=== PATIENT | male | born 1965 | race Caucasian/White ===

== ENCOUNTER → 2016-04-01 | Outpatient (CLI) | payer OTHER ==
--- NOTE | 2016-04-04 12:55 | SLEEP ---
DATE OF STUDY: 04/01/2016 ATTENDING PHYSICIAN: Krish Guillen MD This is a home sleep study. DATE OF STUDY: 04/01/2016 The patient is 50 years old who weighs 230 pounds and 72 inches tall with a BMI of 31. [place] score was 6. Home sleep study was performed at [facility]. The total recording time was 336 minutes. During this time, the patient had 3 central apneas, 352 obstructive apneas and no mixed apneas. There were 4 hypopneas. The patient's apnea-hypopnea index was 64 per hour. Supine index 65 per hour. Review of nocturnal oximetry study revealed an average oxygen saturation of 88% with a lowest of 64%. 177 minutes were spent in oxygen saturation of less than 90%. Mean heart rate was 89 beats per minute. IMPRESSION: 1. Severe sleep apnea-hypopnea syndrome with an AHI of 64 per hour. 2. Nocturnal hypoxia secondary to obstructive sleep apnea. RECOMMENDATIONS: 1. The patient should return for in-lab CPAP titration study. 2. Once optimal CPAP pressure is achieved, then follow up in 4-6 weeks to assess compliance with CPAP and to document clinical improvement. 3. Weight loss is strongly advised. 4. Avoid GANG MOWER OPERATOR depressants. 5. Caution regarding driving until symptoms of sleep apnea resolve with CPAP. PABLO MCCORD MD DR: AYDE/alex JOB#: [id number] / [id number] [facility] KRISH GUILLEN MD MTDD
== END | disposition home or self-care (01) ==
LOC: RT 06:10 → EDUNIT# 07:00
PROVIDERS: ATTEND Family Medicine
DX: Z00.00 Encounter for general adult medical examination without abnormal findings (principal); H91.93 Unspecified hearing loss, bilateral; R53.83 Other fatigue; N40.1 Benign prostatic hyperplasia with lower urinary tract symptoms; G47.33 Obstructive sleep apnea (adult) (pediatric)
CPT/HCPCS: G0399

== ENCOUNTER → 2016-05-22 | Outpatient (CLI) | payer OTHER ==
--- NOTE | 2016-05-23 16:32 | SLEEP ---
DATE OF STUDY: 05/22/2016 ATTENDING PHYSICIAN: Dr. Pietro Hays. The patient is 50 years old who weighs 230 pounds with a BMI of 31. The patient's [place] score was 5. The patient had a previous sleep study, which showed severe JOVANNY with an AHI of 64 per hour. The patient returned for CPAP titration. During the night study, the patient spent 406 minutes in bed and slept for 362 minutes with a sleep efficiency of 89%. Sleep latency was 19 minutes with a REM latency of 139 minutes. Overall, sleep architecture showed increased stage I and stage II sleep, normal slow wave and significantly reduced REM sleep. EKG monitoring revealed average heart rate of 87 beats per minute. No sustained arrhythmias were observed. PLMs were not seen. The patient was started on CPAP at a pressure of 7 cm of water as he was unable to tolerate lower pressure. At the final pressure of 15 cm of water, the patient had 109 minutes of sleep. The patient had supine sleep throughout. No REM sleep was observed. AHI was reduced to 1 per hour and oxygen saturation remained above 96%. The patient used a small sized nasal mask. IMPRESSION: 1. Severe sleep apnea diagnosed by previous sleep study. 2. No clinically significant PLMS. RECOMMENDATIONS: 1. CPAP at 15 cm water completely eliminated patient's sleep apnea and should be used on a nightly basis. 2. Follow up in 4-6 weeks to assess compliance with CPAP and to document clinical improvement. 3. Weight loss strongly advised. 4. Avoid YARN MERCERIZER OPERATOR depressants. 5. Caution regarding driving until symptoms of sleep apnea resolve with the use of CPAP. 6. The patient used small sized nasal mask. PABLO MCCORD MD DR: AYDE/alex JOB#: [id number] / [id number]
== END | disposition home or self-care (01) ==
LOC: RT 18:37
PROVIDERS: ATTEND Family Medicine
DX: G47.33 Obstructive sleep apnea (adult) (pediatric) (principal)
CPT/HCPCS: 94660

== ENCOUNTER 2020-11-15 13:40 | Inpatient (IN) | payer OTHER ==
[~2020-11-15] VITALS: Ht 180.3 cm; Wt 135.2 kg
[2020-11-15] MEDS ORDERED: DEXAMETHASONE SOD PHOS 20 MG/5 ML VIAL. IV ONE (14:30)
[2020-11-15] MEDS: IV NORMAL SALINE 1000ML BAG 1,000 ML IV SCH ×3 (14:30→15:24)
--- NOTE | 2020-11-15 14:52 | RAD ---
EXAM: Chest, single view. HISTORY: Shortness of air. Covid 19. COMPARISON: None. FINDINGS: A frontal view of the chest is obtained. There is multifocal interstitial and alveolar infi ltrate with partial right lower lobe consolidation. There is cardiomegaly. IMPRESSION: Multifocal infiltrate with suspected partial right lower lobe consolidation. Electronically signed by: Jennifer Acevedo MD (11/15/2020 2:50 PM) [id number]
--- NOTE | 2020-11-15 15:11 | PHYS DOC ---
Past Medical History Past Surgical History: No Surgical History Smoking Status: Never Smoker Alcohol Use: None General Adult EDM: Chief Complaint: SHORTNESS OF BREATH HPI: HPI: Patient is a 54 year old obese male who presents to the ED today complaining of shortness of breath worse at night, symptoms began 9 days ago after being diagnosed with COVID-19. Patient states symptoms got worse last night. Patient denies any fever. Reports coughing, denies any chest pain arrives in the ED with O2 sats at 85% on room air. Review of Systems: Review of Systems: Constitutional: Denies fever or chills. [] Eyes: Denies change in visual acuity. [] HENT: Denies nasal congestion or sore throat. [] Respiratory: Reports shortness of breath and coughing Cardiovascular: Denies chest pain or edema. [] GI: Denies abdominal pain, nausea, vomiting, bloody stools or diarrhea. [] : Denies dysuria. [] Musculoskeletal: Denies back pain or joint pain. [] Integument: Denies rash. [] Neurologic: Denies headache, focal weakness or sensory changes. [] Psychiatric: Denies depression or anxiety. [] Heart Score: C/O Chest Pain: N/A Risk Factors: Risk Factors: DM, Current or recent (<one month) smoker, HTN, HLP, family history of CAD, obesity. Risk Scores: Score 0 - 3: 2.5% MACE over next 6 weeks - Discharge Home Score 4 - 6: 20.3% MACE over next 6 weeks - Admit for Clinical Observation Score 7 - 10: 72.7% MACE over next 6 weeks - Early Invasive Strategies Current Medications: Current Medications Medications (Trade) Dose Ordered Sig/Lori Start Time Stop Time Status Last Admin Dose Admin Dexamethasone Sodium Phosphate (Decadron) 10 mg 1X ONCE 11/15/20 14:30 11/15/20 14:31 DC 11/15/20 14:30 10 MG Levofloxacin/ Dextrose 100 ml @ 100 mls/hr 1X ONCE 11/15/20 15:00 11/15/20 15:59 Sodium Chloride 1,000 ml @ 2,250 mls/hr Q27M 11/15/20 14:30 11/15/20 15:30 11/15/20 14:30 2,250 MLS/HR Allergies: Allergies: Allergies Coded Allergies Type Severity Reaction Last Updated Verified Penicillins Allergy Intermediate 11/15/20 Yes Sulfa (Sulfonamide Antibiotics) Allergy Intermediate 11/15/20 Yes Physical Exam: PE: Constitutional: Well developed, well nourished, no acute distress, non-toxic appearance. [] HENT: Normocephalic, atraumatic, bilateral external ears normal, oropharynx moist, no oral exudates, nose normal. [] Eyes: PERRLA, EOMI, conjunctiva normal, no discharge. [] Neck: Normal range of motion, no tenderness, supple, no stridor. [] Cardiovascular:Heart rate regular rhythm, no murmur [] Lungs & Thorax: Bilateral breath sounds clear to auscultation [] Abdomen: Bowel sounds normal, soft, no tenderness, no masses, no pulsatile masses. [] Skin: Warm, dry, no erythema, no rash. [] Back: No tenderness, no CVA tenderness. [] Extremities: No tenderness, no cyanosis, no clubbing, ROM intact, no edema. [] Neurologic: Alert and oriented X 3, normal motor function, normal sensory function, no focal deficits noted. [] Psychologic: Affect normal, judgement normal, mood normal. [] Current Patient Data: Vital Signs: Vital Signs Date Time Temp Pulse Resp B/P (MAP) Pulse Ox O2 Delivery O2 Flow Rate FiO2 11/15/20 14:15 95 Nasal Cannula 5.0 11/15/20 14:08 98.5 116 22 141/77 (98) 98.5 EKG: EKG: [] Radiology/Procedures: Radiology/Procedures: []PROCEDURE: PORTABLE CHEST 1V EXAM: Chest, single view. HISTORY: Shortness of air. Covid 19. COMPARISON: None. FINDINGS: A frontal view of the chest is obtained. There is multifocal interstitial and alveolar infiltrate with partial right lower lobe consolidation. There is cardiomegaly. IMPRESSION: Multifocal infiltrate with suspected partial right lower lobe consolidation. Electronically signed by: Jennifer Bey MD (11/15/2020 2:50 PM) [id number] DICTATED and SIGNED BY: JENNIFER BEY MD DATE: 11/15/20 [id number] Course & Med Decision Making: Course & Med Decision Making Pertinent Labs and Imaging studies reviewed. (See chart for details) This a 54-year-old male patient presenting to the ED today complaining of worsening cough and shortness of breath after being diagnosed with COVID-19 9 days ago. Patient arrived in the ED with O2 sats of 85% on room air. He was put on 5 L of oxygen satting 95% CBC with no acute findings, CMP with AST of 93, ALT 78, ALK 187. Chest x-ray noted for multifocal pneumonia. Started on Levaquin, and jose luis Spoke with Dr. Luis who accepted patient for admission Zuleima Disclaimer: Zuleima Disclaimer: This electronic medical record was generated, in whole or in part, using a voice recognition dictation system. Departure Departure Impression: Primary Impression: Acute respiratory failure with hypoxia Additional Impression: Pneumonia due to COVID-19 virus Disposition: ADMITTED INPATIENT Condition: STABLE Referrals: KRISH GUILLEN MD (PCP) CAIN MCLAIN APRN Nov 15, 2020 15:10
[2020-11-15 15:15] LABS: BASO % 0 % (0-3); EOS % 0 % (0-3); HEMATOCRIT 40.9 % (39.0-53.0); HEMOGLOBIN 14.2 g/dL (13.0-17.5); LYMPH # 0.6 x10^3/uL (1.0-4.8); LYMPH % 10 % (24-48); MEAN CORPUSCULAR HEMOGLOBIN 31 pg (25-35); MEAN CORPUSCULAR HGB CONC 35 g/dL (31-37); MEAN CORPUSCULAR VOLUME 88 fL (79-100); MONO # 0.3 x10^3/uL (0.0-1.1); MONO % 5 % (0-9); NEUT # 5.4 x10^3/uL (1.8-7.7); NEUT % 85 % (31-73); PLATELET COUNT 170 x10^3/uL (140-400); RED BLOOD COUNT 4.63 x10^6/uL (4.30-5.70); RED CELL DISTRIBUTION WIDTH 13.8 % (11.5-14.5); WHITE BLOOD COUNT 6.3 x10^3/uL (4.0-11.0)
[2020-11-15 15:36] LABS: CALCIUM 8.2 mg/dL (8.5-10.1); GFR 77.6; POTASSIUM 3.7 mmol/L (3.5-5.1)
[2020-11-15 15:49] LABS: ALBUMIN 2.4 g/dL (3.4-5.0); ALBUMIN/GLOBULIN RATIO 0.6 (1.0-1.7); TOTAL BILIRUBIN 0.4 mg/dL (0.2-1.0); TOTAL PROTEIN 6.6 g/dL (6.4-8.2)
--- NOTE | 2020-11-15 16:39 | PDOC1 ---
History and Physical Date of Admission Date of Admission DATE: 11/15/20 TIME: 16:31 Identification/Chief Complaint Chief Complaint Shortness of breath Source Source: Patient History of Present Illness History of Present Illness Patient is a 54-year-old male with past medical history morbid obesity, presents to the ED with complaints of shortness of breath. States he was diagnosed with COVID-19 9 days ago that he contracted from his at home. Initially symptoms began with cough, but since that time has been progressing to include shortness of breath, body aches, headaches. Upon arrival in the ED he was saturating 85% on room air. This improved with 5 L nasal cannula. Labs on admission showed AST 93, ALT 78, alk phos 187, albumin 2.4, sodium 132. Chest x-ray showed multifocal infiltrates with suspected partial right lower lobe consolidation. He has not been vaccinated against COVID-19 for "sabianism reasons". He received Levaquin and Decadron in the ED. Will admit patient for further medical management. Past Medical History Past Medical History Morbid obesity Past Surgical History Past Surgical History: No pertinent history Family History Family History Atrial fibrillation Family History: Coronary Artery Disease Social History Smoke: No ALCOHOL: occassional Drugs: None Current Medications Current Medications Current Medications Sodium Chloride 1,000 ml @ 2,250 mls/hr Q27M IV Last administered on 11/15/20at 14:30; Start 11/15/20 at 14:30; Stop 11/15/20 at 15:30; Status DC Dexamethasone Sodium Phosphate (Decadron) 10 mg 1X ONCE IV Last administered on 11/15/20at 14:30; Start 11/15/20 at 14:30; Stop 11/15/20 at 14:31; Status DC Levofloxacin/ Dextrose 100 ml @ 100 mls/hr 1X ONCE IV Last administered on 11/15/20at 15:29; Start 11/15/20 at 15:00; Stop 11/15/20 at 15:59; Status DC Remdesivir 200 mg/ Sodium Chloride 210 ml @ 210 mls/hr 1X ONCE IV ; Start 11/01 07/21 at 17:00; Stop 11/15/20 at 17:59 Remdesivir 100 mg/ Sodium Chloride 230 ml @ 460 mls/hr Q24H IV ; Start 11/16/20 at 17:00; Stop 11/19/20 at 17:29 Allergies Allergies: Coded Allergies: Penicillins (Verified Allergy, Intermediate, 11/15/20) Sulfa (Sulfonamide Antibiotics) (Verified Allergy, Intermediate, 11/15/20) ROS Review of System GENERAL: No history of weight change, weakness or fevers. SKIN: No bruising, hair changes or rashes. EYES: No blurred, double or loss of vision. NOSE AND THROAT: No history of nosebleeds, hoarseness or sore throat. HEART: Denies chest pain, denies palpitations. LUNGS: Cough, shortness of breath. Denies hemoptysis or wheezing. GASTROINTESTINAL: Denies nausea, vomiting, abdominal pain. GENITOURINARY: Denies dysuria, frequency, urgency, hematuria. NEUROLOGIC: Denies history of numbness, tingling, tremor or weakness. PSYCHIATRIC: Denies anxiety, denies depression. ENDOCRINE: No history of heat or cold intolerance, polyuria or polydipsia. EXTREMITIES: Denies muscle weakness, joint pain, pain on walking or stiffness. Physical Exam Physical Exam General: Alert, Oriented X3, Cooperative, mild distress. Morbidly obese. HEENT: PERRLA, EOMI Lungs: Decreased breath sounds bilaterally. Normal air movement Heart: RRR, no murmurs Cardiovascular: S1, S2 Abdomen: Obese abdomen. Normal bowel sounds, Soft, No tenderness Extremities: No clubbing, No cyanosis Skin: No rashes, No significant lesion Neuro: Normal speech, Normal tone, Sensation intact Psych/Mental Status: Mental status NL, Mood NL Vitals Vitals Vital Signs Date Time Temp Pulse Resp B/P (MAP) Pulse Ox O2 Delivery O2 Flow Rate FiO2 11/15/20 14:15 95 Nasal Cannula 5.0 11/15/20 14:08 98.5 116 22 141/77 (98) 98.5 Labs Labs Laboratory Tests Test 11/15/20 15:00 White Blood Count 6.3 x10^3/uL (4.0-11.0) Red Blood Count 4.63 x10^6/uL (4.30-5.70) Hemoglobin 14.2 g/dL (13.0-17.5) Hematocrit 40.9 % (39.0-53.0) Mean Corpuscular Volume 88 fL (79-100) Mean Corpuscular Hemoglobin 31 pg (25-35) Mean Corpuscular Hemoglobin Concent 35 g/dL (31-37) Red Cell Distribution Width 13.8 % (11.5-14.5) Platelet Count 170 x10^3/uL (140-400) Neutrophils (%) (Auto) 85 % (31-73) Lymphocytes (%) (Auto) 10 % (24-48) Monocytes (%) (Auto) 5 % (0-9) Eosinophils (%) (Auto) 0 % (0-3) Basophils (%) (Auto) 0 % (0-3) Neutrophils # (Auto) 5.4 x10^3/uL (1.8-7.7) Lymphocytes # (Auto) 0.6 x10^3/uL (1.0-4.8) Monocytes # (Auto) 0.3 x10^3/uL (0.0-1.1) Eosinophils # (Auto) 0.0 x10^3/uL (0.0-0.7) Basophils # (Auto) 0.0 x10^3/uL (0.0-0.2) Sodium Level 132 mmol/L (136-145) Potassium Level 3.7 mmol/L (3.5-5.1) Chloride Level 98 mmol/L (98-107) Carbon Dioxide Level 25 mmol/L (21-32) Anion Gap 9 (6-14) Blood Urea Nitrogen 10 mg/dL (8-26) Creatinine 1.0 mg/dL (0.7-1.3) Estimated GFR (Cockcroft-Gault) 77.6 BUN/Creatinine Ratio 10 (6-20) Glucose Level 114 mg/dL (70-99) Lactic Acid Level 1.2 mmol/L (0.4-2.0) Calcium Level 8.2 mg/dL (8.5-10.1) Magnesium Level 2.0 mg/dL (1.8-2.4) Total Bilirubin 0.4 mg/dL (0.2-1.0) Aspartate Amino Transf (AST/SGOT) 93 U/L (15-37) Alanine Aminotransferase (ALT/SGPT) 78 U/L (16-63) Alkaline Phosphatase 187 U/L (46-116) Troponin I Quantitative < 0.017 ng/mL (0.000-0.055) NF-Cgi-N-Type Natriuretic Peptide 56 pg/mL (0-124) Total Protein 6.6 g/dL (6.4-8.2) Albumin 2.4 g/dL (3.4-5.0) Albumin/Globulin Ratio 0.6 (1.0-1.7) Procalcitonin 0.17 ng/mL (0.00-0.10) Thyroid Stimulating Hormone (TSH) 0.925 uIU/mL (0.358-3.74) Laboratory Tests Test 11/15/20 15:00 White Blood Count 6.3 x10^3/uL (4.0-11.0) Red Blood Count 4.63 x10^6/uL (4.30-5.70) Hemoglobin 14.2 g/dL (13.0-17.5) Hematocrit 40.9 % (39.0-53.0) Mean Corpuscular Volume 88 fL (79-100) Mean Corpuscular Hemoglobin 31 pg (25-35) Mean Corpuscular Hemoglobin Concent 35 g/dL (31-37) Red Cell Distribution Width 13.8 % (11.5-14.5) Platelet Count 170 x10^3/uL (140-400) Neutrophils (%) (Auto) 85 % (31-73) Lymphocytes (%) (Auto) 10 % (24-48) Monocytes (%) (Auto) 5 % (0-9) Eosinophils (%) (Auto) 0 % (0-3) Basophils (%) (Auto) 0 % (0-3) Neutrophils # (Auto) 5.4 x10^3/uL (1.8-7.7) Lymphocytes # (Auto) 0.6 x10^3/uL (1.0-4.8) Monocytes # (Auto) 0.3 x10^3/uL (0.0-1.1) Eosinophils # (Auto) 0.0 x10^3/uL (0.0-0.7) Basophils # (Auto) 0.0 x10^3/uL (0.0-0.2) Sodium Level 132 mmol/L (136-145) Potassium Level 3.7 mmol/L (3.5-5.1) Chloride Level 98 mmol/L (98-107) Carbon Dioxide Level 25 mmol/L (21-32) Anion Gap 9 (6-14) Blood Urea Nitrogen 10 mg/dL (8-26) Creatinine 1.0 mg/dL (0.7-1.3) Estimated GFR (Cockcroft-Gault) 77.6 BUN/Creatinine Ratio 10 (6-20) Glucose Level 114 mg/dL (70-99) Lactic Acid Level 1.2 mmol/L (0.4-2.0) Calcium Level 8.2 mg/dL (8.5-10.1) Magnesium Level 2.0 mg/dL (1.8-2.4) Total Bilirubin 0.4 mg/dL (0.2-1.0) Aspartate Amino Transf (AST/SGOT) 93 U/L (15-37) Alanine Aminotransferase (ALT/SGPT) 78 U/L (16-63) Alkaline Phosphatase 187 U/L (46-116) Troponin I Quantitative < 0.017 ng/mL (0.000-0.055) CX-Avj-X-Type Natriuretic Peptide 56 pg/mL (0-124) Total Protein 6.6 g/dL (6.4-8.2) Albumin 2.4 g/dL (3.4-5.0) Albumin/Globulin Ratio 0.6 (1.0-1.7) Procalcitonin 0.17 ng/mL (0.00-0.10) Thyroid Stimulating Hormone (TSH) 0.925 uIU/mL (0.358-3.74) Images Images PATIENT: BENNIE ENGEL ACCOUNT: [id number] : 1965 LOCATION: ER AGE: 54 SEX: M EXAM STATUS: PRE ER ORD. PHYSICIAN: CAIN MCLAIN APRN REASON: SOA +covid PROCEDURE: PORTABLE CHEST 1V EXAM: Chest, single view. HISTORY: Shortness of air. Covid 19. COMPARISON: None. FINDINGS: A frontal view of the chest is obtained. There is multifocal interstitial and alveolar infiltrate with partial right lower lobe consolidation. There is cardiomegaly. IMPRESSION: Multifocal infiltrate with suspected partial right lower lobe consolidation. VTE Prophylaxis Ordered VTE Prophylaxis Devices: No VTE Pharmacological Prophylaxi: Yes Assessment/Plan Assessment/Plan Acute respiratory failure with hypoxia COVID-19 pneumonia Morbid obesity Severe malnutrition Plan: After discussion with patient, will initiate remdesivir for 5-day course Decadron 6 mg daily to complete 10-day treatment with slow taper Empiric antibiotics Monitor daily LFTs Obtain CRP; if greater than >75 will consult pharmacy for Actemra Currently breathing on 5 L nasal cannula; if he begins to require more oxygen will consult pulmonology for further recommendations Supportive care, vitamin C, zinc. FEN - Cardiac diet PPX - Lovenox FULL CODE Dispo - inpatient for above Patient names his as surrogate decision-maker Justifications for Admission Other Justification ASH WEST MD Nov 15, 2020 16:39
[2020-11-15] MEDS ORDERED: MAG HYDROX/ALUMINUM HYD/SIMETH 30 ML ORAL.SUSP PO PRN (17:00)
[2020-11-15] MEDS ORDERED: CALCIUM CARBONATE 500 MG TAB.CHEW PO PRN (17:00)
[2020-11-15] MEDS ORDERED: HYDROcodone/APAP 5/325MG 1 TAB TABLET PO PRN (17:00)
[2020-11-15] MEDS ORDERED: ACETAMINOPHEN 325 MG TABLET. PO PRN ×2 (17:00→21:30)
[2020-11-15] MEDS ORDERED: ZOLPIDEM 5 MG TABLET. PO PRN (17:00)
[2020-11-15] MEDS ORDERED: ONDANSETRON PF 4 MG/2 ML VIAL. IVP PRN ×2 (17:00→21:30)
[2020-11-15] MEDS ORDERED: tiZANidine 4 MG TABLET. PO PRN (17:00)
[2020-11-15] MEDS ORDERED: MAGNESIUM HYDROXIDE 2,400 MG/30 ML ORAL.SUSP. PO PRN (17:00)
[2020-11-15] MEDS ORDERED: REMDESIVIR LOAD in IV NORMAL SALINE 250ML TV IV ONE (17:00)
--- NOTE | 2020-11-15 17:21 | EKG ---
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
[2020-11-15] MEDS: cefTRIAXone IV Push 1 GM VIAL. IVP SCH (17:40)
[2020-11-15 19:00] VITALS: BP 147/85
[2020-11-15] MEDS ORDERED: VENTOLIN HFA18 GM INH (19:49)
[2020-11-15] MEDS ORDERED: BENZ200C47 PO (19:49)
[2020-11-15] MEDS: guaiFENesin DM 200MG/20MG 10 ML SYRUP PO PRN (21:06)
[2020-11-15] MEDS: ENOXAPARIN 40 MG/0.4 ML SYRINGE. SQ SCH (21:06)
[2020-11-15] MEDS: DOXYCYCLINE HYCLATE 100 MG TABLET PO SCH (21:06)
[2020-11-15] MEDS: ASCORBIC ACID 500 MG TABLET PO SCH (21:06)
[2020-11-15] MEDS ORDERED: MORPHINE SULFATE 2 MG/ML INJ. IVP PRN (21:30)
[2020-11-15 22:49] VITALS: BP 133/71
[2020-11-16 06:54] LABS: ALBUMIN 2.4 g/dL (3.4-5.0); DIRECT BILIRUBIN 0.1 mg/dL (0.0-0.2); TOTAL BILIRUBIN 0.3 mg/dL (0.2-1.0); TOTAL PROTEIN 5.8 g/dL (6.4-8.2)
[2020-11-16 07:00] VITALS: BP 144/78
[2020-11-16 07:04] LABS: CALCIUM 8.3 mg/dL (8.5-10.1); CREATININE 0.9 mg/dL (0.7-1.3); GFR 87.6; POTASSIUM 3.8 mmol/L (3.5-5.1)
--- NOTE | 2020-11-16 08:26 | PDOC ---
[employer] PROGRESS NOTE Date of Service DOS: DATE: 11/16/20 TIME: 08:24 Chief Complaint Chief Complaint Acute respiratory failure with hypoxia COVID-19 pneumonia Morbid obesity Severe malnutrition Plan: After discussion with patient, will initiate remdesivir for 5-day course Decadron 6 mg daily to complete 10-day treatment with slow taper Empiric antibiotics Monitor daily LFTs Requires more oxygen will consult pulmonology for further recommendations regarding baricitinib Supportive care, vitamin C, zinc. FEN - Cardiac diet PPX - Lovenox FULL CODE Dispo - inpatient for above Patient names his as surrogate decision-maker History of Present Illness History of Present Illness Mr Holt is a 54-year-old male with past medical history morbid obesity, presents to the ED with complaints of shortness of breath. States he was diagnosed with COVID-19 9 days ago that he contracted from his at home. Initially symptoms began with cough, but since that time has been progressing to include shortness of breath, body aches, headaches. Upon arrival in the ED he was saturating 85% on room air. This improved with 5 L nasal cannula. Labs on admission showed AST 93, ALT 78, alk phos 187, albumin 2.4, sodium 132. Chest x-ray showed multifocal infiltrates with suspected partial right lower lobe consolidation. He has not been vaccinated against COVID-19 for "holiness reasons". He received Levaquin and Decadron in the ED. Will admit patient for further medical management. Afebrile overnight. O2 saturations 92% now on 8 L nasal cannula. LFTs increased CRP 159. Notes he thinks he could taste the jelly on his toast today and his appetite is improved. Still complaining of diarrhea and abdominal pain thinks his cough is stable. Vitals/I&O Vitals/I&O: Vital Signs Date Time Temp Pulse Resp B/P (MAP) Pulse Ox O2 Delivery O2 Flow Rate FiO2 11/16/20 07:00 97.0 95 18 144/78 (100) 90 Nasal Cannula 6.0 97.0 I & O 11/15/20 11/15/20 11/16/20 15:00 23:00 07:00 Intake Total 400 ml Balance 400 ml Physical Exam General: Alert, Oriented X3, Cooperative, moderate distress Heart: Regular rate, Normal S1, Normal S2 Lungs: Clear Abdomen: Normal bowel sounds, Soft Extremities: No clubbing, No cyanosis Skin: No rashes, No breakdown Labs Labs: Laboratory Tests Test 11/15/20 15:00 11/15/20 18:10 11/15/20 21:25 11/16/20 02:45 White Blood Count 6.3 x10^3/uL (4.0-11.0) Red Blood Count 4.63 x10^6/uL (4.30-5.70) Hemoglobin 14.2 g/dL (13.0-17.5) Hematocrit 40.9 % (39.0-53.0) Mean Corpuscular Volume 88 fL (79-100) Mean Corpuscular Hemoglobin 31 pg (25-35) Mean Corpuscular Hemoglobin Concent 35 g/dL (31-37) Red Cell Distribution Width 13.8 % (11.5-14.5) Platelet Count 170 x10^3/uL (140-400) Neutrophils (%) (Auto) 85 % (31-73) Lymphocytes (%) (Auto) 10 % (24-48) Monocytes (%) (Auto) 5 % (0-9) Eosinophils (%) (Auto) 0 % (0-3) Basophils (%) (Auto) 0 % (0-3) Neutrophils # (Auto) 5.4 x10^3/uL (1.8-7.7) Lymphocytes # (Auto) 0.6 x10^3/uL (1.0-4.8) Monocytes # (Auto) 0.3 x10^3/uL (0.0-1.1) Eosinophils # (Auto) 0.0 x10^3/uL (0.0-0.7) Basophils # (Auto) 0.0 x10^3/uL (0.0-0.2) Sodium Level 132 mmol/L (136-145) 136 mmol/L (136-145) Potassium Level 3.7 mmol/L (3.5-5.1) 3.8 mmol/L (3.5-5.1) Chloride Level 98 mmol/L (98-107) 99 mmol/L (98-107) Carbon Dioxide Level 25 mmol/L (21-32) 24 mmol/L (21-32) Anion Gap 9 (6-14) 13 (6-14) Blood Urea Nitrogen 10 mg/dL (8-26) 13 mg/dL (8-26) Creatinine 1.0 mg/dL (0.7-1.3) 0.9 mg/dL (0.7-1.3) Estimated GFR (Cockcroft-Gault) 77.6 87.6 BUN/Creatinine Ratio 10 (6-20) Glucose Level 114 mg/dL (70-99) 136 mg/dL (70-99) Lactic Acid Level 1.2 mmol/L (0.4-2.0) Calcium Level 8.2 mg/dL (8.5-10.1) 8.3 mg/dL (8.5-10.1) Magnesium Level 2.0 mg/dL (1.8-2.4) Total Bilirubin 0.4 mg/dL (0.2-1.0) 0.3 mg/dL (0.2-1.0) Aspartate Amino Transf (AST/SGOT) 93 U/L (15-37) 96 U/L (15-37) Alanine Aminotransferase (ALT/SGPT) 78 U/L (16-63) 86 U/L (16-63) Alkaline Phosphatase 187 U/L (46-116) 187 U/L (46-116) Troponin I Quantitative < 0.017 ng/mL (0.000-0.055) < 0.017 ng/mL (0.000-0.055) < 0.017 ng/mL (0.000-0.055) C-Reactive Protein, Quantitative 194.2 mg/L (0-3.3) 193.9 mg/L (0-3.3) NM-Xpc-U-Type Natriuretic Peptide 56 pg/mL (0-124) Total Protein 6.6 g/dL (6.4-8.2) 5.8 g/dL (6.4-8.2) Albumin 2.4 g/dL (3.4-5.0) 2.4 g/dL (3.4-5.0) Albumin/Globulin Ratio 0.6 (1.0-1.7) Procalcitonin 0.17 ng/mL (0.00-0.10) Thyroid Stimulating Hormone (TSH) 0.925 uIU/mL (0.358-3.74) Direct Bilirubin 0.1 mg/dL (0.0-0.2) Test 11/16/20 07:53 Glucose (Fingerstick) 147 mg/dL (70-99) Comment Review of Relevant I have reviewed the following items [place] (where applicable) has been applied. Medications: Current Medications Medications (Trade) Dose Ordered Sig/Lori Route PRN Reason Start Time Stop Time Status Last Admin Dose Admin Sodium Chloride 1,000 ml @ 2,250 mls/hr Q27M IV 11/15/20 14:30 11/15/20 15:30 DC 11/15/20 15:24 Dexamethasone Sodium Phosphate (Decadron) 10 mg 1X ONCE IV 11/15/20 14:30 11/15/20 14:31 DC 11/15/20 14:30 Levofloxacin/ Dextrose 100 ml @ 100 mls/hr 1X ONCE IV 11/15/20 15:00 11/15/20 15:59 DC 11/15/20 15:29 Remdesivir 200 mg/ Sodium Chloride 210 ml @ 210 mls/hr 1X ONCE IV 11/15/20 17:00 11/15/20 17:59 DC 11/15/20 17:40 Ceftriaxone Sodium (Rocephin) 1 gm DAILY IVP 11/15/20 17:00 11/21/20 16:59 11/15/20 17:40 Doxycycline Hyclate (Vibra-Tab) 100 mg BID PO 11/15/20 21:00 11/20/20 20:59 11/15/20 21:06 Ascorbic Acid (Vitamin C) 500 mg BID PO 11/15/20 21:00 11/29/20 20:59 11/15/20 21:06 Guaifenesin (Robitussin Dm) 10 ml PRN Q6HRS PRN PO COUGH 11/15/20 16:45 11/15/20 21:06 Enoxaparin Sodium (Lovenox 40mg Syringe) 40 mg Q12HR SQ 11/15/20 21:00 11/15/20 21:06 Justifications for Admission Other Justification CANDE LONDON MD Nov 16, 2020 08:26
[2020-11-16] MEDS: ENOXAPARIN 40 MG/0.4 ML SYRINGE. SQ SCH ×2 (08:57→22:07)
[2020-11-16] MEDS: ZINC SULFATE 220 MG CAPSULE. PO SCH (08:57)
[2020-11-16] MEDS: ASCORBIC ACID 500 MG TABLET PO SCH ×2 (08:57→22:08)
[2020-11-16] MEDS: DOXYCYCLINE HYCLATE 100 MG TABLET PO SCH ×2 (08:57→22:08)
[2020-11-16] MEDS: DEXAMETHASONE SOD PHOS 4 MG/ML VIAL IVP SCH (08:58)
--- NOTE | 2020-11-16 10:21 | NUR ---
SW following. Discussed with RN, pt from home with , 6-8L, cardiac diet. COVID-19 positive. RN advised no SW needs at this time. SW will continue to follow.
[2020-11-16 11:00] VITALS: BP 158/77
[2020-11-16] MEDS ORDERED: LOPERAMIDE 2 MG CAPSULE PO PRN (11:45)
--- NOTE | 2020-11-16 12:46 | CONS ---
DATE OF CONSULTATION: 11/16/2020 PULMONARY CONSULTATION ATTENDING PHYSICIAN: Dr. Luis. REASON FOR CONSULTATION: Hypoxic respiratory failure, COVID-19 pneumonia. HISTORY OF PRESENT ILLNESS: The patient is a 54-year-old male with a BMI of 41.6. He is a nonsmoker. He was tested positive for COVID on the 6th. He initially did not have any shortness of breath. The initial symptoms were cough, some body aches, headaches. Then, he started to have some shortness of breath. His pulse ox was 85% on room air. He is now up to 6 liters of oxygen. His chest x-ray shows bilateral interstitial infiltrates. This is consistent with COVID-19. No headaches, no nausea, vomiting, no diarrhea, no dysuria. He is unvaccinated. The patient was initiated on remdesivir and steroids. I have been asked to see him for further evaluation. PAST MEDICAL HISTORY: Morbid obesity. PAST SURGICAL HISTORY: None. FAMILY HISTORY: Atrial fibrillation and coronary artery disease. ALLERGIES: PENICILLIN, SULFA. MEDICATIONS: Reviewed as listed in the [facility] including remdesivir and dexamethasone and antibiotic Rocephin. He is also on Lovenox for DVT prophylaxis. REVIEW OF SYSTEMS: A 12-point system obtained. Pertinent positives discussed in my present illness, otherwise noncontributory. All systems that were negative were reviewed as well. PHYSICAL EXAMINATION: He is comfortable. Pulse ox 90% on 6 liters, afebrile. Visual exam done due to COVID-19. No obvious respiratory distress. No paradoxical breathing. No skin rash. LABORATORY DATA: Reviewed. White cell count 6.3, hemoglobin 14.2. BUN and creatinine 13 and 0.9. LFTs are abnormal. IMPRESSION: 1. Acute hypoxic respiratory failure secondary to COVID-19 pneumonia and acute lung injury. 2. Abnormal chest x-ray related to COVID-19 pneumonia. 3. The patient is unvaccinated for COVID-19. 4. Abnormal liver function test. Would not be a candidate for baricitinib. 5. Moderate protein calorie malnutrition. RECOMMENDATIONS: 1. Continue present oxygen. Keep saturation 92 and above. 2. We will closely watch for need for increased oxygen requirements. 3. Continue dexamethasone. 4. Remdesivir for 5-day protocol. 5. IV antibiotics, doxycycline and Rocephin. 6. Lovenox for DVT prophylaxis. 7. As discussed above, the patient is not a candidate for baricitinib. 8. Discussed with PAOLA. AYDE/ABRAN DR: Kartik TID: [id number]
[2020-11-16] MEDS: cefTRIAXone IV Push 1 GM VIAL. IVP SCH (14:20)
[2020-11-16 15:00] VITALS: BP 160/74
[2020-11-16] MEDS: guaiFENesin DM 200MG/20MG 10 ML SYRUP PO PRN (17:58)
[2020-11-16] MEDS: REMDESIVIR 100mg in NORMAL SALINE 250ML X 4 DAYS IV SCH (17:58)
[2020-11-16 19:00] VITALS: BP 144/72
[2020-11-16 23:00] VITALS: BP 132/77
[2020-11-16 23:24] LABS: HEMOGLOBIN A1C 5.9 % (4.8-5.6)
[2020-11-17 03:00] VITALS: BP 130/75
[2020-11-17 07:00] VITALS: BP 140/75
--- NOTE | 2020-11-17 07:47 | PDOC ---
[employer] PROGRESS NOTE Date of Service DOS: DATE: 11/17/20 TIME: 07:47 Chief Complaint Chief Complaint Acute respiratory failure with hypoxia COVID-19 pneumonia Morbid obesity Severe malnutrition Plan: After discussion with patient, will initiate remdesivir for 5-day course Decadron 6 mg daily to complete 10-day treatment with slow taper Empiric antibiotics Monitor daily LFTs Requires more oxygen will consult pulmonology for further recommendations regarding baricitinib Supportive care, vitamin C, zinc. FEN - Cardiac diet PPX - Lovenox FULL CODE Dispo - inpatient for above Patient names his as surrogate decision-maker History of Present Illness History of Present Illness Mr Holt is a 54-year-old male with past medical history morbid obesity, presents to the ED with complaints of shortness of breath. States he was diagnosed with COVID-19. 9 days ago that he contracted from his at home. Initially symptoms began with cough, but since that time has been progressing to include shortness of breath, body aches, headaches. Upon arrival in the ED he was saturating 85% on room air. This improved with 5 L nasal cannula. Labs on admission showed AST 93, ALT 78, alk phos 187, albumin 2.4, sodium 132. Chest x- ray showed multifocal infiltrates with suspected partial right lower lobe consolidation. He has not been vaccinated against COVID-19 for "tenriism reasons". He received Levaquin and Decadron in the ED. Will admit patient for further medical management. 11/16: Afebrile overnight. O2 saturations 92% now on 8 L nasal cannula. LFTs increased CRP 159. Notes he thinks he could taste the jelly on his toast today and his appetite is improved. Still complaining of diarrhea and abdominal pain thinks his cough is stable. Afebrile overnight. LFTs not the same CRP still elevated. O2 saturations 93% now on 15 L facemask O2. Still has an appetite is able to move around. Has significant O2 desaturations when he tried to get up to urinate today. Still has little bit of diarrhea abdominal pain is a little better. Discussed with his over the phone. Given his LFTs not a candidate for baricitinib Vitals/I&O Vitals/I&O: Vital Signs Date Time Temp Pulse Resp B/P (MAP) Pulse Ox O2 Delivery O2 Flow Rate FiO2 11/17/20 03:00 97.5 92 16 130/75 (93) 90 97.5 11/16/20 20:15 Nasal Cannula 10.0 I & O 11/16/20 11/16/20 11/17/20 15:00 23:00 07:00 Intake Total 500 ml 640 ml Balance 500 ml 640 ml Physical Exam General: Alert, Oriented X3, Cooperative, moderate distress Heart: Regular rate, Normal S1, Normal S2 Lungs: Clear Abdomen: Normal bowel sounds, Soft Extremities: No clubbing, No cyanosis Skin: No rashes, No breakdown Labs Labs: Laboratory Tests Test 11/16/20 07:53 11/16/20 12:09 11/16/20 16:47 11/16/20 21:35 Glucose (Fingerstick) 147 mg/dL (70-99) 150 mg/dL (70-99) 141 mg/dL (70-99) 136 mg/dL (70-99) Comment Review of Relevant I have reviewed the following items [place] (where applicable) has been applied. Medications: Current Medications Medications (Trade) Dose Ordered Sig/Lori Route PRN Reason Start Time Stop Time Status Last Admin Dose Admin Remdesivir 100 mg/ Sodium Chloride 230 ml @ 460 mls/hr Q24H IV 11/16/20 17:00 11/19/20 17:29 11/16/20 17:58 Dexamethasone Sodium Phosphate (Decadron) 6 mg DAILY IVP 11/16/20 09:00 11/26/20 08:59 11/16/20 08:58 Zinc Sulfate (Orazinc) 440 mg DAILY PO 11/16/20 09:00 11/30/20 08:59 11/16/20 08:57 Justifications for Admission Other Justification CANDE LONDON MD Nov 17, 2020 07:47
[2020-11-17 08:16] LABS: ALBUMIN 2.3 g/dL (3.4-5.0); DIRECT BILIRUBIN 0.2 mg/dL (0.0-0.2); TOTAL BILIRUBIN 0.4 mg/dL (0.2-1.0); TOTAL PROTEIN 5.7 g/dL (6.4-8.2)
[2020-11-17 08:21] LABS: CALCIUM 8.3 mg/dL (8.5-10.1); GFR 77.6; POTASSIUM 3.4 mmol/L (3.5-5.1)
[2020-11-17] MEDS: DEXAMETHASONE SOD PHOS 4 MG/ML VIAL IVP SCH (09:20)
[2020-11-17] MEDS: DOXYCYCLINE HYCLATE 100 MG TABLET PO SCH ×2 (09:21→21:17)
[2020-11-17] MEDS: ZINC SULFATE 220 MG CAPSULE. PO SCH (09:21)
[2020-11-17] MEDS: cefTRIAXone IV Push 1 GM VIAL. IVP SCH (09:21)
[2020-11-17] MEDS: ASCORBIC ACID 500 MG TABLET PO SCH ×2 (09:21→21:17)
[2020-11-17] MEDS: ENOXAPARIN 40 MG/0.4 ML SYRINGE. SQ SCH ×2 (09:21→21:17)
--- NOTE | 2020-11-17 10:26 | NUR ---
SW following. Discussed with RN, pt from home with . COVID-19 positive. No on 12L oxygen and likely needing to bump up. RN advised no SW needs at this time. SW will continue to follow.
[2020-11-17 11:00] VITALS: BP 142/65
--- NOTE | 2020-11-17 11:10 | PDOC ---
PULMONARY PROGRESS NOTES DATE: 11/17/20 TIME: 11:08 Subjective Denies any shortness of breath Remains on 10 L oxygen Vitals Vital Signs Date Time Temp Pulse Resp B/P (MAP) Pulse Ox O2 Delivery O2 Flow Rate FiO2 11/17/20 07:00 96.9 88 26 140/75 (96) 91 96.9 11/16/20 20:15 Nasal Cannula 10.0 Comments Visual exam done due to COVID-19. No paradoxical breathing no skin rash no leg edema General: Alert Labs Laboratory Tests Test 11/15/20 15:00 11/15/20 18:10 11/15/20 21:25 11/16/20 02:45 White Blood Count 6.3 x10^3/uL (4.0-11.0) Red Blood Count 4.63 x10^6/uL (4.30-5.70) Hemoglobin 14.2 g/dL (13.0-17.5) Hematocrit 40.9 % (39.0-53.0) Mean Corpuscular Volume 88 fL (79-100) Mean Corpuscular Hemoglobin 31 pg (25-35) Mean Corpuscular Hemoglobin Concent 35 g/dL (31-37) Red Cell Distribution Width 13.8 % (11.5-14.5) Platelet Count 170 x10^3/uL (140-400) Neutrophils (%) (Auto) 85 % (31-73) Lymphocytes (%) (Auto) 10 % (24-48) Monocytes (%) (Auto) 5 % (0-9) Eosinophils (%) (Auto) 0 % (0-3) Basophils (%) (Auto) 0 % (0-3) Neutrophils # (Auto) 5.4 x10^3/uL (1.8-7.7) Lymphocytes # (Auto) 0.6 x10^3/uL (1.0-4.8) Monocytes # (Auto) 0.3 x10^3/uL (0.0-1.1) Eosinophils # (Auto) 0.0 x10^3/uL (0.0-0.7) Basophils # (Auto) 0.0 x10^3/uL (0.0-0.2) Sodium Level 132 mmol/L (136-145) 136 mmol/L (136-145) Potassium Level 3.7 mmol/L (3.5-5.1) 3.8 mmol/L (3.5-5.1) Chloride Level 98 mmol/L (98-107) 99 mmol/L (98-107) Carbon Dioxide Level 25 mmol/L (21-32) 24 mmol/L (21-32) Anion Gap 9 (6-14) 13 (6-14) Blood Urea Nitrogen 10 mg/dL (8-26) 13 mg/dL (8-26) Creatinine 1.0 mg/dL (0.7-1.3) 0.9 mg/dL (0.7-1.3) Estimated GFR (Cockcroft-Gault) 77.6 87.6 BUN/Creatinine Ratio 10 (6-20) Glucose Level 114 mg/dL (70-99) 136 mg/dL (70-99) Lactic Acid Level 1.2 mmol/L (0.4-2.0) Calcium Level 8.2 mg/dL (8.5-10.1) 8.3 mg/dL (8.5-10.1) Magnesium Level 2.0 mg/dL (1.8-2.4) Total Bilirubin 0.4 mg/dL (0.2-1.0) 0.3 mg/dL (0.2-1.0) Aspartate Amino Transf (AST/SGOT) 93 U/L (15-37) 96 U/L (15-37) Alanine Aminotransferase (ALT/SGPT) 78 U/L (16-63) 86 U/L (16-63) Alkaline Phosphatase 187 U/L (46-116) 187 U/L (46-116) Troponin I Quantitative < 0.017 ng/mL (0.000-0.055) < 0.017 ng/mL (0.000-0.055) < 0.017 ng/mL (0.000-0.055) C-Reactive Protein, Quantitative 194.2 mg/L (0-3.3) 193.9 mg/L (0-3.3) RK-Dfl-P-Type Natriuretic Peptide 56 pg/mL (0-124) Total Protein 6.6 g/dL (6.4-8.2) 5.8 g/dL (6.4-8.2) Albumin 2.4 g/dL (3.4-5.0) 2.4 g/dL (3.4-5.0) Albumin/Globulin Ratio 0.6 (1.0-1.7) Procalcitonin 0.17 ng/mL (0.00-0.10) Thyroid Stimulating Hormone (TSH) 0.925 uIU/mL (0.358-3.74) Hemoglobin A1c 5.9 % (4.8-5.6) Direct Bilirubin 0.1 mg/dL (0.0-0.2) Test 11/16/20 07:53 11/16/20 12:09 11/16/20 16:47 11/16/20 21:35 Glucose (Fingerstick) 147 mg/dL (70-99) 150 mg/dL (70-99) 141 mg/dL (70-99) 136 mg/dL (70-99) Test 11/17/20 07:40 11/17/20 07:53 Sodium Level 138 mmol/L (136-145) Potassium Level 3.4 mmol/L (3.5-5.1) Chloride Level 103 mmol/L (98-107) Carbon Dioxide Level 25 mmol/L (21-32) Anion Gap 10 (6-14) Blood Urea Nitrogen 17 mg/dL (8-26) Creatinine 1.0 mg/dL (0.7-1.3) Estimated GFR (Cockcroft-Gault) 77.6 Glucose Level 120 mg/dL (70-99) Calcium Level 8.3 mg/dL (8.5-10.1) Total Bilirubin 0.4 mg/dL (0.2-1.0) Direct Bilirubin 0.2 mg/dL (0.0-0.2) Aspartate Amino Transf (AST/SGOT) 95 U/L (15-37) Alanine Aminotransferase (ALT/SGPT) 114 U/L (16-63) Alkaline Phosphatase 174 U/L (46-116) Total Protein 5.7 g/dL (6.4-8.2) Albumin 2.3 g/dL (3.4-5.0) Glucose (Fingerstick) 125 mg/dL (70-99) Laboratory Tests Test 11/16/20 12:09 11/16/20 16:47 11/16/20 21:35 11/17/20 07:40 Glucose (Fingerstick) 150 mg/dL (70-99) 141 mg/dL (70-99) 136 mg/dL (70-99) Sodium Level 138 mmol/L (136-145) Potassium Level 3.4 mmol/L (3.5-5.1) Chloride Level 103 mmol/L (98-107) Carbon Dioxide Level 25 mmol/L (21-32) Anion Gap 10 (6-14) Blood Urea Nitrogen 17 mg/dL (8-26) Creatinine 1.0 mg/dL (0.7-1.3) Estimated GFR (Cockcroft-Gault) 77.6 Glucose Level 120 mg/dL (70-99) Calcium Level 8.3 mg/dL (8.5-10.1) Total Bilirubin 0.4 mg/dL (0.2-1.0) Direct Bilirubin 0.2 mg/dL (0.0-0.2) Aspartate Amino Transf (AST/SGOT) 95 U/L (15-37) Alanine Aminotransferase (ALT/SGPT) 114 U/L (16-63) Alkaline Phosphatase 174 U/L (46-116) Total Protein 5.7 g/dL (6.4-8.2) Albumin 2.3 g/dL (3.4-5.0) Test 11/17/20 07:53 Glucose (Fingerstick) 125 mg/dL (70-99) Medications Active Scripts Medications Dose Route/Sig Max Daily Dose Days Date Category Benzonatate 200 Mg Capsule 1 Cap PO PRN TID PRN 7 11/15/20 Reported Ventolin Hfa Inhaler (Albuterol Sulfate) 18 Gm Hfa.aer.ad 2 Puff INH Q4HRS PRN 11/15/20 Reported Impression . 1. Acute hypoxic respiratory failure secondary to COVID-19 pneumonia and acute lung injury. 2. Abnormal chest x-ray related to COVID-19 pneumonia. 3. The patient is unvaccinated for COVID-19. 4. Abnormal liver function test. Would not be a candidate for baricitinib. 5. Moderate protein calorie malnutrition. Plan . 1. Continue present oxygen. Keep saturation 92 and above. 2. We will closely watch for need for increased oxygen requirements. 3. Continue dexamethasone. 4. Remdesivir for 5-day protocol. 5. IV antibiotics, doxycycline and Rocephin. 6. Lovenox for DVT prophylaxis. 7. As discussed above, the patient is not a candidate for baricitinib. 8. Discussed with RN and PABLO Gallardo MD Nov 17, 2020 11:10
[2020-11-17 15:00] VITALS: BP 130/67
[2020-11-17] MEDS: REMDESIVIR 100mg in NORMAL SALINE 250ML X 4 DAYS IV SCH (16:48)
[2020-11-17 19:00] VITALS: BP 143/77
[2020-11-17] MEDS: guaiFENesin DM 200MG/20MG 10 ML SYRUP PO PRN (21:16)
[2020-11-17] MEDS: LACTOBACILLUS RHAMNOSUS GG 1 CAPSULE. PO SCH (21:17)
[2020-11-17 23:00] VITALS: BP 137/81
[2020-11-18 03:00] VITALS: BP 145/87
--- NOTE | 2020-11-18 06:38 | PDOC ---
PULMONARY PROGRESS NOTES DATE: 11/18/20 TIME: 06:37 Subjective Denies any shortness of breath Remains on 6 L oxygen Vitals Vital Signs Date Time Temp Pulse Resp B/P (MAP) Pulse Ox O2 Delivery O2 Flow Rate FiO2 11/18/20 03:00 97.7 82 18 145/87 (106) 93 Nasal Cannula 6.0 97.7 Comments Visual exam done due to COVID-19. no distress nc at rrr no accessory muscle use no skin rash no leg edema General: Alert Labs Laboratory Tests Test 11/16/20 07:53 11/16/20 12:09 11/16/20 16:47 11/16/20 21:35 Glucose (Fingerstick) 147 mg/dL (70-99) 150 mg/dL (70-99) 141 mg/dL (70-99) 136 mg/dL (70-99) Test 11/17/20 07:40 11/17/20 07:53 11/17/20 16:55 11/17/20 20:06 Sodium Level 138 mmol/L (136-145) Potassium Level 3.4 mmol/L (3.5-5.1) Chloride Level 103 mmol/L (98-107) Carbon Dioxide Level 25 mmol/L (21-32) Anion Gap 10 (6-14) Blood Urea Nitrogen 17 mg/dL (8-26) Creatinine 1.0 mg/dL (0.7-1.3) Estimated GFR (Cockcroft-Gault) 77.6 Glucose Level 120 mg/dL (70-99) Calcium Level 8.3 mg/dL (8.5-10.1) Total Bilirubin 0.4 mg/dL (0.2-1.0) Direct Bilirubin 0.2 mg/dL (0.0-0.2) Aspartate Amino Transf (AST/SGOT) 95 U/L (15-37) Alanine Aminotransferase (ALT/SGPT) 114 U/L (16-63) Alkaline Phosphatase 174 U/L (46-116) Total Protein 5.7 g/dL (6.4-8.2) Albumin 2.3 g/dL (3.4-5.0) Glucose (Fingerstick) 125 mg/dL (70-99) 126 mg/dL (70-99) 159 mg/dL (70-99) Laboratory Tests Test 11/17/20 07:40 11/17/20 07:53 11/17/20 16:55 11/17/20 20:06 Sodium Level 138 mmol/L (136-145) Potassium Level 3.4 mmol/L (3.5-5.1) Chloride Level 103 mmol/L (98-107) Carbon Dioxide Level 25 mmol/L (21-32) Anion Gap 10 (6-14) Blood Urea Nitrogen 17 mg/dL (8-26) Creatinine 1.0 mg/dL (0.7-1.3) Estimated GFR (Cockcroft-Gault) 77.6 Glucose Level 120 mg/dL (70-99) Calcium Level 8.3 mg/dL (8.5-10.1) Total Bilirubin 0.4 mg/dL (0.2-1.0) Direct Bilirubin 0.2 mg/dL (0.0-0.2) Aspartate Amino Transf (AST/SGOT) 95 U/L (15-37) Alanine Aminotransferase (ALT/SGPT) 114 U/L (16-63) Alkaline Phosphatase 174 U/L (46-116) Total Protein 5.7 g/dL (6.4-8.2) Albumin 2.3 g/dL (3.4-5.0) Glucose (Fingerstick) 125 mg/dL (70-99) 126 mg/dL (70-99) 159 mg/dL (70-99) Medications Active Scripts Medications Dose Route/Sig Max Daily Dose Days Date Category Benzonatate 200 Mg Capsule 1 Cap PO PRN TID PRN 7 11/15/20 Reported Ventolin Hfa Inhaler (Albuterol Sulfate) 18 Gm Hfa.aer.ad 2 Puff INH Q4HRS PRN 11/15/20 Reported Impression . 1. Acute hypoxic respiratory failure secondary to COVID-19 pneumonia and acute lung injury. 2. Abnormal chest x-ray related to COVID-19 pneumonia. 3. The patient is unvaccinated for COVID-19. 4. Abnormal liver function test. Would not be a candidate for baricitinib. 5. Moderate protein calorie malnutrition. Plan . 1. on 02 6 lpm titrate fio2 to keep sat 90%. 2. We will closely watch for need for increased oxygen requirements. 3. Continue dexamethasone. 4. Remdesivir for 5-day protocol. 5. IV antibiotics, doxycycline and Rocephin. 6. Lovenox for DVT prophylaxis. 7. As discussed above, the patient is not a candidate for baricitinib. 8. Discussed with MATT MARTIN MD Nov 18, 2020 06:38
[2020-11-18 07:00] VITALS: BP 149/83
[2020-11-18 07:51] LABS: ALBUMIN 2.4 g/dL (3.4-5.0); CALCIUM 8.6 mg/dL (8.5-10.1); CREATININE 0.9 mg/dL (0.7-1.3); DIRECT BILIRUBIN 0.2 mg/dL (0.0-0.2); GFR 87.6; POTASSIUM 3.6 mmol/L (3.5-5.1); TOTAL BILIRUBIN 0.4 mg/dL (0.2-1.0); TOTAL PROTEIN 5.7 g/dL (6.4-8.2)
[2020-11-18] MEDS: ZINC SULFATE 220 MG CAPSULE. PO SCH (09:18)
[2020-11-18] MEDS: DOXYCYCLINE HYCLATE 100 MG TABLET PO SCH ×2 (09:18→21:37)
[2020-11-18] MEDS: ENOXAPARIN 40 MG/0.4 ML SYRINGE. SQ SCH ×2 (09:18→21:37)
[2020-11-18] MEDS: ASCORBIC ACID 500 MG TABLET PO SCH ×2 (09:18→21:37)
[2020-11-18] MEDS: LACTOBACILLUS RHAMNOSUS GG 1 CAPSULE. PO SCH ×2 (09:18→21:37)
[2020-11-18] MEDS: DEXAMETHASONE SOD PHOS 4 MG/ML VIAL IVP SCH (09:18)
[2020-11-18] MEDS: cefTRIAXone IV Push 1 GM VIAL. IVP SCH (09:19)
[2020-11-18 11:00] VITALS: BP 156/81
--- NOTE | 2020-11-18 14:39 | PDOC ---
GENERAL General: Patient examined chart reviewed today is hospital day 4 for this patient with acute hypoxic respiratory failure secondary to Covid 19 pneumonia. He also has significant watery diarrhea with this as well as elevated liver function test. We appreciate pulmonary support. We will continue current protocol. He needs more liberal use of the Imodium. I have also encouraged him to be up and moving about his room and keeping up with his hydration. His oxygen requirements are staying high he is currently on 12 L nasal cannula. Problems: (1) Acute respiratory failure with hypoxia (2) Pneumonia due to COVID-19 virus VITAL SIGNS Vital Signs/I&O: Vital Signs Date Time Temp Pulse Resp B/P (MAP) Pulse Ox O2 Delivery O2 Flow Rate FiO2 11/18/20 11:00 97.9 103 18 156/81 (106) 92 Nasal Cannula 6.0 97.9 I & O 11/17/20 11/17/20 11/18/20 15:00 23:00 07:00 Intake Total 200 ml 400 ml Balance 200 ml 400 ml Patient is sitting up resting comfortably dyspneic also complaining of recent stool incontinence HEENT exam is unremarkable for acute abnormality Chest is notable for diminished air entry throughout no crackles or wheezes are noted Heart S1-S2 normal regular rate and rhythm no murmurs or gallops are noted Abdomen soft nontender nondistended no masses organomegaly noted Extremity exam is unremarkable for acute abnormality ALLERGIES Allergies: Allergies Coded Allergies Type Severity Reaction Last Updated Verified Penicillins Allergy Intermediate 11/15/20 Yes Sulfa (Sulfonamide Antibiotics) Allergy Intermediate 11/15/20 Yes MEDS Medications: Current Medications Medications (Trade) Dose Ordered Sig/Lori Start Time Stop Time Status Last Admin Dose Admin Acetaminophen (Tylenol) 650 mg PRN Q4HRS PRN 11/15/20 21:30 11/16/20 21:29 Cancel Acetaminophen/ Hydrocodone Bitart (Lortab 5/325) 1 tab PRN Q4HRS PRN 11/15/20 17:00 Al Hydroxide/Mg Hydroxide (Mylanta Plus Xs) 30 ml PRN Q3HRS PRN 11/15/20 17:00 Ascorbic Acid (Vitamin C) 500 mg BID 11/15/20 21:00 11/29/20 20:59 11/18/20 09:18 Calcium Carbonate/ Glycine (Tums) 500 mg PRN Q3HRS PRN 11/15/20 17:00 Ceftriaxone Sodium (Rocephin) 1 gm DAILY 11/15/20 17:00 11/21/20 16:59 11/18/20 09:19 Dexamethasone Sodium Phosphate (Decadron) 6 mg DAILY 11/16/20 09:00 11/26/20 08:59 11/18/20 09:18 Doxycycline Hyclate (Vibra-Tab) 100 mg BID 11/15/20 21:00 11/20/20 20:59 11/18/20 09:18 Enoxaparin Sodium (Lovenox 40mg Syringe) 40 mg Q12HR 11/15/20 21:00 11/18/20 09:18 Guaifenesin (Robitussin Dm) 10 ml PRN Q6HRS PRN 11/15/20 16:45 11/17/20 21:16 Lactobacillus Rhamnosus (Culturelle) 1 cap BID 11/17/20 21:00 11/18/20 09:18 Levofloxacin/ Dextrose 100 ml @ 100 mls/hr 1X ONCE 11/15/20 15:00 11/15/20 15:59 DC 11/15/20 15:29 Loperamide HCl (Imodium) 2 mg PRN Q15MIN PRN 11/16/20 11:45 Magnesium Hydroxide (Milk Of Magnesia) 2,400 mg PRN Q12HR PRN 11/15/20 17:00 Morphine Sulfate (Morphine Sulfate) 2 mg PRN Q2HR PRN 11/15/20 21:30 11/16/20 21:29 DC Ondansetron HCl (Zofran) 4 mg PRN Q8HRS PRN 11/15/20 21:30 11/16/20 21:29 Cancel Remdesivir 100 mg/ Sodium Chloride 230 ml @ 460 mls/hr Q24H 11/16/20 17:00 11/19/20 17:29 11/17/20 16:48 Remdesivir 200 mg/ Sodium Chloride 210 ml @ 210 mls/hr 1X ONCE 11/15/20 17:00 11/15/20 17:59 DC 11/15/20 17:40 Sodium Chloride 1,000 ml @ 2,250 mls/hr Q27M 11/15/20 14:30 11/15/20 15:30 DC 11/15/20 15:24 Tizanidine HCl (Zanaflex) 4 mg PRN Q8HRS PRN 11/15/20 17:00 Zinc Sulfate (Orazinc) 440 mg DAILY 11/16/20 09:00 11/30/20 08:59 11/18/20 09:18 Zolpidem Tartrate (Ambien) 5 mg PRN QHS PRN 11/15/20 17:00 Current Medications Medications (Trade) Dose Ordered Sig/Lori Route PRN Reason Start Time Stop Time Status Last Admin Dose Admin Lactobacillus Rhamnosus (Culturelle) 1 cap BID PO 11/17/20 21:00 11/18/20 09:18 LAB Lab: Laboratory Tests Test 11/17/20 16:55 11/17/20 20:06 11/18/20 06:10 11/18/20 08:20 Glucose (Fingerstick) 126 mg/dL (70-99) H 159 mg/dL (70-99) H 91 mg/dL (70-99) Sodium Level 141 mmol/L (136-145) Potassium Level 3.6 mmol/L (3.5-5.1) Chloride Level 105 mmol/L (98-107) Carbon Dioxide Level 24 mmol/L (21-32) Anion Gap 12 (6-14) Blood Urea Nitrogen 18 mg/dL (8-26) Creatinine 0.9 mg/dL (0.7-1.3) Estimated GFR (Cockcroft-Gault) 87.6 Glucose Level 102 mg/dL (70-99) H Calcium Level 8.6 mg/dL (8.5-10.1) Total Bilirubin 0.4 mg/dL (0.2-1.0) Direct Bilirubin 0.2 mg/dL (0.0-0.2) Aspartate Amino Transferase (AST) 159 U/L (15-37) H Alanine Aminotransferase (ALT) 300 U/L (16-63) H Alkaline Phosphatase 198 U/L (46-116) H Total Protein 5.7 g/dL (6.4-8.2) L Albumin 2.4 g/dL (3.4-5.0) L Test 11/18/20 12:00 Glucose (Fingerstick) 96 mg/dL (70-99) Laboratory Tests 11/18/20 06:10 ASSESSMENT & PLAN A&P Plan as noted above This note was created using [employer] and may have omissions and/or errors due to the nature of 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 Justifications for Admission Other Justification VISHAL MAGANA MD Nov 18, 2020 14:39
[2020-11-18 15:00] VITALS: BP 131/76
[2020-11-18] MEDS: REMDESIVIR 100mg in NORMAL SALINE 250ML X 4 DAYS IV SCH (17:47)
[2020-11-18 19:00] VITALS: BP 150/76
[2020-11-18 23:00] VITALS: BP 141/66
[2020-11-19 03:00] VITALS: BP 134/79
[2020-11-19 06:32] LABS: BASO % 0 % (0-3); EOS % 0 % (0-3); HEMATOCRIT 38.9 % (39.0-53.0); HEMOGLOBIN 13.2 g/dL (13.0-17.5); LYMPH # 1.4 x10^3/uL (1.0-4.8); LYMPH % 14 % (24-48); MEAN CORPUSCULAR HEMOGLOBIN 30 pg (25-35); MEAN CORPUSCULAR HGB CONC 34 g/dL (31-37); MEAN CORPUSCULAR VOLUME 89 fL (79-100); MONO # 0.8 x10^3/uL (0.0-1.1); MONO % 8 % (0-9); NEUT # 8.2 x10^3/uL (1.8-7.7); NEUT % 78 % (31-73); PLATELET COUNT 317 x10^3/uL (140-400); RED BLOOD COUNT 4.36 x10^6/uL (4.30-5.70); RED CELL DISTRIBUTION WIDTH 13.9 % (11.5-14.5); WHITE BLOOD COUNT 10.6 x10^3/uL (4.0-11.0)
[2020-11-19 06:57] LABS: ALBUMIN 2.2 g/dL (3.4-5.0); ALBUMIN/GLOBULIN RATIO 0.6 (1.0-1.7); CALCIUM 8.1 mg/dL (8.5-10.1); CREATININE 0.9 mg/dL (0.7-1.3); GFR 87.6; POTASSIUM 3.5 mmol/L (3.5-5.1); TOTAL BILIRUBIN 0.5 mg/dL (0.2-1.0)
[2020-11-19 07:00] VITALS: BP 136/65
[2020-11-19] MEDS: LACTOBACILLUS RHAMNOSUS GG 1 CAPSULE. PO SCH ×2 (09:04→20:53)
[2020-11-19] MEDS: ASCORBIC ACID 500 MG TABLET PO SCH ×2 (09:04→20:54)
[2020-11-19] MEDS: DOXYCYCLINE HYCLATE 100 MG TABLET PO SCH ×2 (09:05→20:54)
[2020-11-19] MEDS: DEXAMETHASONE SOD PHOS 4 MG/ML VIAL IVP SCH (09:05)
[2020-11-19] MEDS: ZINC SULFATE 220 MG CAPSULE. PO SCH (09:05)
[2020-11-19] MEDS: cefTRIAXone IV Push 1 GM VIAL. IVP SCH (09:06)
[2020-11-19] MEDS: ENOXAPARIN 40 MG/0.4 ML SYRINGE. SQ SCH ×2 (09:06→20:54)
--- NOTE | 2020-11-19 10:08 | PDOC ---
PULMONARY PROGRESS NOTES DATE: 11/19/20 TIME: 10:08 Subjective Denies any shortness of breath on 02 15 lpm Vitals Vital Signs Date Time Temp Pulse Resp B/P (MAP) Pulse Ox O2 Delivery O2 Flow Rate FiO2 11/19/20 07:00 97.4 98 18 136/65 (88) 96 Nasal Cannula 12.0 97.4 Comments Visual exam done due to COVID-19. no distress nc at rrr no accessory muscle use no skin rash no leg edema General: Alert Labs Laboratory Tests Test 11/17/20 16:55 11/17/20 20:06 11/18/20 06:10 11/18/20 08:20 Glucose (Fingerstick) 126 mg/dL (70-99) 159 mg/dL (70-99) 91 mg/dL (70-99) Sodium Level 141 mmol/L (136-145) Potassium Level 3.6 mmol/L (3.5-5.1) Chloride Level 105 mmol/L (98-107) Carbon Dioxide Level 24 mmol/L (21-32) Anion Gap 12 (6-14) Blood Urea Nitrogen 18 mg/dL (8-26) Creatinine 0.9 mg/dL (0.7-1.3) Estimated GFR (Cockcroft-Gault) 87.6 Glucose Level 102 mg/dL (70-99) Calcium Level 8.6 mg/dL (8.5-10.1) Total Bilirubin 0.4 mg/dL (0.2-1.0) Direct Bilirubin 0.2 mg/dL (0.0-0.2) Aspartate Amino Transf (AST/SGOT) 159 U/L (15-37) Alanine Aminotransferase (ALT/SGPT) 300 U/L (16-63) Alkaline Phosphatase 198 U/L (46-116) Total Protein 5.7 g/dL (6.4-8.2) Albumin 2.4 g/dL (3.4-5.0) Test 11/18/20 12:00 11/18/20 17:27 11/18/20 20:42 11/19/20 05:45 Glucose (Fingerstick) 96 mg/dL (70-99) 125 mg/dL (70-99) 110 mg/dL (70-99) White Blood Count 10.6 x10^3/uL (4.0-11.0) Red Blood Count 4.36 x10^6/uL (4.30-5.70) Hemoglobin 13.2 g/dL (13.0-17.5) Hematocrit 38.9 % (39.0-53.0) Mean Corpuscular Volume 89 fL (79-100) Mean Corpuscular Hemoglobin 30 pg (25-35) Mean Corpuscular Hemoglobin Concent 34 g/dL (31-37) Red Cell Distribution Width 13.9 % (11.5-14.5) Platelet Count 317 x10^3/uL (140-400) Neutrophils (%) (Auto) 78 % (31-73) Lymphocytes (%) (Auto) 14 % (24-48) Monocytes (%) (Auto) 8 % (0-9) Eosinophils (%) (Auto) 0 % (0-3) Basophils (%) (Auto) 0 % (0-3) Neutrophils # (Auto) 8.2 x10^3/uL (1.8-7.7) Lymphocytes # (Auto) 1.4 x10^3/uL (1.0-4.8) Monocytes # (Auto) 0.8 x10^3/uL (0.0-1.1) Eosinophils # (Auto) 0.0 x10^3/uL (0.0-0.7) Basophils # (Auto) 0.0 x10^3/uL (0.0-0.2) Sodium Level 141 mmol/L (136-145) Potassium Level 3.5 mmol/L (3.5-5.1) Chloride Level 108 mmol/L (98-107) Carbon Dioxide Level 24 mmol/L (21-32) Anion Gap 9 (6-14) Blood Urea Nitrogen 17 mg/dL (8-26) Creatinine 0.9 mg/dL (0.7-1.3) Estimated GFR (Cockcroft-Gault) 87.6 BUN/Creatinine Ratio 19 (6-20) Glucose Level 89 mg/dL (70-99) Calcium Level 8.1 mg/dL (8.5-10.1) Total Bilirubin 0.5 mg/dL (0.2-1.0) Direct Bilirubin 0.2 mg/dL (0.0-0.2) Aspartate Amino Transf (AST/SGOT) 61 U/L (15-37) Alanine Aminotransferase (ALT/SGPT) 220 U/L (16-63) Alkaline Phosphatase 166 U/L (46-116) Total Protein 6.0 g/dL (6.4-8.2) Albumin 2.2 g/dL (3.4-5.0) Albumin/Globulin Ratio 0.6 (1.0-1.7) Test 11/19/20 08:24 Glucose (Fingerstick) 88 mg/dL (70-99) Laboratory Tests Test 11/18/20 12:00 11/18/20 17:27 11/18/20 20:42 11/19/20 05:45 Glucose (Fingerstick) 96 mg/dL (70-99) 125 mg/dL (70-99) 110 mg/dL (70-99) White Blood Count 10.6 x10^3/uL (4.0-11.0) Red Blood Count 4.36 x10^6/uL (4.30-5.70) Hemoglobin 13.2 g/dL (13.0-17.5) Hematocrit 38.9 % (39.0-53.0) Mean Corpuscular Volume 89 fL (79-100) Mean Corpuscular Hemoglobin 30 pg (25-35) Mean Corpuscular Hemoglobin Concent 34 g/dL (31-37) Red Cell Distribution Width 13.9 % (11.5-14.5) Platelet Count 317 x10^3/uL (140-400) Neutrophils (%) (Auto) 78 % (31-73) Lymphocytes (%) (Auto) 14 % (24-48) Monocytes (%) (Auto) 8 % (0-9) Eosinophils (%) (Auto) 0 % (0-3) Basophils (%) (Auto) 0 % (0-3) Neutrophils # (Auto) 8.2 x10^3/uL (1.8-7.7) Lymphocytes # (Auto) 1.4 x10^3/uL (1.0-4.8) Monocytes # (Auto) 0.8 x10^3/uL (0.0-1.1) Eosinophils # (Auto) 0.0 x10^3/uL (0.0-0.7) Basophils # (Auto) 0.0 x10^3/uL (0.0-0.2) Sodium Level 141 mmol/L (136-145) Potassium Level 3.5 mmol/L (3.5-5.1) Chloride Level 108 mmol/L (98-107) Carbon Dioxide Level 24 mmol/L (21-32) Anion Gap 9 (6-14) Blood Urea Nitrogen 17 mg/dL (8-26) Creatinine 0.9 mg/dL (0.7-1.3) Estimated GFR (Cockcroft-Gault) 87.6 BUN/Creatinine Ratio 19 (6-20) Glucose Level 89 mg/dL (70-99) Calcium Level 8.1 mg/dL (8.5-10.1) Total Bilirubin 0.5 mg/dL (0.2-1.0) Direct Bilirubin 0.2 mg/dL (0.0-0.2) Aspartate Amino Transf (AST/SGOT) 61 U/L (15-37) Alanine Aminotransferase (ALT/SGPT) 220 U/L (16-63) Alkaline Phosphatase 166 U/L (46-116) Total Protein 6.0 g/dL (6.4-8.2) Albumin 2.2 g/dL (3.4-5.0) Albumin/Globulin Ratio 0.6 (1.0-1.7) Test 11/19/20 08:24 Glucose (Fingerstick) 88 mg/dL (70-99) Medications Active Scripts Medications Dose Route/Sig Max Daily Dose Days Date Category Benzonatate 200 Mg Capsule 1 Cap PO PRN TID PRN 7 11/15/20 Reported Ventolin Hfa Inhaler (Albuterol Sulfate) 18 Gm Hfa.aer.ad 2 Puff INH Q4HRS PRN 11/15/20 Reported Impression . 1. Acute hypoxic respiratory failure secondary to COVID-19 pneumonia and acute lung injury. 2. Abnormal chest x-ray related to COVID-19 pneumonia. 3. The patient is unvaccinated for COVID-19. 4. Abnormal liver function test. Would not be a candidate for baricitinib. 5. Moderate protein calorie malnutrition. Plan . 1. titrate fio2 to keep sat 90%. start IS 2. We will closely watch for need for increased oxygen requirements. 3. Continue dexamethasone. 4. Remdesivir for 5-day protocol. 5. IV antibiotics, doxycycline and Rocephin. 6. Lovenox for DVT prophylaxis. 7. As discussed above, the patient is not a candidate for baricitinib. 8. Discussed with MATT MARTIN MD Nov 19, 2020 10:08
[2020-11-19 11:00] VITALS: BP 143/69
--- NOTE | 2020-11-19 11:06 | PDOC ---
GENERAL General: Patient examined chart reviewed tells me he had a wart difficult night with coughing and or dyspneic is having a hard time sleeping without his CPAP. He uses CPAP at home with 15 cm of water pressure and a nasal pillow he is wondering if that would be possible here. He cannot tolerate the nonrebreather mask because he thinks he may have some claustrophobia. I have asked him to address the CPAP with pulmonary during her rounds this morning. He continues to use 15 L on nasal cannula he has been relatively stable oxygenation on that. Appreciate subspecialty support. All systems reviewed and otherwise negative Problems: (1) Acute respiratory failure with hypoxia (2) Pneumonia due to COVID-19 virus (3) Elevated liver function tests (4) Obstructive sleep apnea VITAL SIGNS Vital Signs/I&O: Vital Signs Date Time Temp Pulse Resp B/P (MAP) Pulse Ox O2 Delivery O2 Flow Rate FiO2 11/19/20 08:00 Nasal Cannula 15.0 11/19/20 07:00 97.4 98 18 136/65 (88) 96 97.4 I & O 11/18/20 11/18/20 11/19/20 15:00 23:00 07:00 Intake Total 100 ml Output Total 300 ml Balance 100 ml -300 ml In general the patient is pleasant sitting up in bed dyspneic alert and oriented x3 other than shortness of breath in no acute distress HEENT exam is unremarkable Neck is soft and supple no adenopathy or thyromegaly noted Chest notable for tachypnea bilateral equal air entry though diminished throughout inspiratory and expiratory crackles throughout Heart S1-S2 normal tachycardic no murmurs or gallops are noted Abdomen is obese soft nontender nondistended no masses organomegaly noted Extremity exam is unremarkable for acute abnormality ALLERGIES Allergies: Allergies Coded Allergies Type Severity Reaction Last Updated Verified Penicillins Allergy Intermediate 11/15/20 Yes Sulfa (Sulfonamide Antibiotics) Allergy Intermediate 11/15/20 Yes MEDS Medications: Current Medications Medications (Trade) Dose Ordered Sig/Lori Start Time Stop Time Status Last Admin Dose Admin Acetaminophen (Tylenol) 650 mg PRN Q4HRS PRN 11/15/20 21:30 11/16/20 21:29 Cancel Acetaminophen/ Hydrocodone Bitart (Lortab 5/325) 1 tab PRN Q4HRS PRN 11/15/20 17:00 Al Hydroxide/Mg Hydroxide (Mylanta Plus Xs) 30 ml PRN Q3HRS PRN 11/15/20 17:00 Ascorbic Acid (Vitamin C) 500 mg BID 11/15/20 21:00 11/29/20 20:59 11/19/20 09:04 Calcium Carbonate/ Glycine (Tums) 500 mg PRN Q3HRS PRN 11/15/20 17:00 Ceftriaxone Sodium (Rocephin) 1 gm DAILY 11/15/20 17:00 11/21/20 16:59 11/19/20 09:06 Dexamethasone Sodium Phosphate (Decadron) 6 mg DAILY 11/16/20 09:00 11/26/20 08:59 11/19/20 09:05 Doxycycline Hyclate (Vibra-Tab) 100 mg BID 11/15/20 21:00 11/20/20 20:59 11/19/20 09:05 Enoxaparin Sodium (Lovenox 40mg Syringe) 40 mg Q12HR 11/15/20 21:00 11/19/20 09:06 Guaifenesin (Robitussin Dm) 10 ml PRN Q6HRS PRN 11/15/20 16:45 11/17/20 21:16 Lactobacillus Rhamnosus (Culturelle) 1 cap BID 11/17/20 21:00 11/19/20 09:04 Levofloxacin/ Dextrose 100 ml @ 100 mls/hr 1X ONCE 11/15/20 15:00 11/15/20 15:59 DC 11/15/20 15:29 Loperamide HCl (Imodium) 2 mg PRN Q15MIN PRN 11/16/20 11:45 Magnesium Hydroxide (Milk Of Magnesia) 2,400 mg PRN Q12HR PRN 11/15/20 17:00 Morphine Sulfate (Morphine Sulfate) 2 mg PRN Q2HR PRN 11/15/20 21:30 11/16/20 21:29 DC Ondansetron HCl (Zofran) 4 mg PRN Q8HRS PRN 11/15/20 21:30 11/16/20 21:29 Cancel Remdesivir 100 mg/ Sodium Chloride 230 ml @ 460 mls/hr Q24H 11/16/20 17:00 11/19/20 17:29 11/18/20 17:47 Remdesivir 200 mg/ Sodium Chloride 210 ml @ 210 mls/hr 1X ONCE 11/15/20 17:00 11/15/20 17:59 DC 11/15/20 17:40 Sodium Chloride 1,000 ml @ 2,250 mls/hr Q27M 11/15/20 14:30 11/15/20 15:30 DC 11/15/20 15:24 Tizanidine HCl (Zanaflex) 4 mg PRN Q8HRS PRN 11/15/20 17:00 Zinc Sulfate (Orazinc) 440 mg DAILY 11/16/20 09:00 11/30/20 08:59 11/19/20 09:05 Zolpidem Tartrate (Ambien) 5 mg PRN QHS PRN 11/15/20 17:00 LAB Lab: Laboratory Tests Test 11/18/20 12:00 11/18/20 17:27 11/18/20 20:42 11/19/20 05:45 Glucose (Fingerstick) 96 mg/dL (70-99) 125 mg/dL (70-99) H 110 mg/dL (70-99) H White Blood Count 10.6 x10^3/uL (4.0-11.0) Red Blood Count 4.36 x10^6/uL (4.30-5.70) Hemoglobin 13.2 g/dL (13.0-17.5) Hematocrit 38.9 % (39.0-53.0) L Mean Corpuscular Volume 89 fL (79-100) Mean Corpuscular Hemoglobin 30 pg (25-35) Mean Corpuscular Hemoglobin Concent 34 g/dL (31-37) Red Cell Distribution Width 13.9 % (11.5-14.5) Platelet Count 317 x10^3/uL (140-400) Neutrophils (%) (Auto) 78 % (31-73) H Lymphocytes (%) (Auto) 14 % (24-48) L Monocytes (%) (Auto) 8 % (0-9) Eosinophils (%) (Auto) 0 % (0-3) Basophils (%) (Auto) 0 % (0-3) Neutrophils # (Auto) 8.2 x10^3/uL (1.8-7.7) H Lymphocytes # (Auto) 1.4 x10^3/uL (1.0-4.8) Monocytes # (Auto) 0.8 x10^3/uL (0.0-1.1) Eosinophils # (Auto) 0.0 x10^3/uL (0.0-0.7) Basophils # (Auto) 0.0 x10^3/uL (0.0-0.2) Sodium Level 141 mmol/L (136-145) Potassium Level 3.5 mmol/L (3.5-5.1) Chloride Level 108 mmol/L (98-107) H Carbon Dioxide Level 24 mmol/L (21-32) Anion Gap 9 (6-14) Blood Urea Nitrogen 17 mg/dL (8-26) Creatinine 0.9 mg/dL (0.7-1.3) Estimated GFR (Cockcroft-Gault) 87.6 BUN/Creatinine Ratio 19 (6-20) Glucose Level 89 mg/dL (70-99) Calcium Level 8.1 mg/dL (8.5-10.1) L Total Bilirubin 0.5 mg/dL (0.2-1.0) Direct Bilirubin 0.2 mg/dL (0.0-0.2) Aspartate Amino Transferase (AST) 61 U/L (15-37) H Alanine Aminotransferase (ALT) 220 U/L (16-63) H Alkaline Phosphatase 166 U/L (46-116) H Total Protein 6.0 g/dL (6.4-8.2) L Albumin 2.2 g/dL (3.4-5.0) L Albumin/Globulin Ratio 0.6 (1.0-1.7) L Test 11/19/20 08:24 Glucose (Fingerstick) 88 mg/dL (70-99) Laboratory Tests 11/19/20 05:45 Laboratory Tests 11/19/20 05:45 ASSESSMENT & PLAN A&P Plan as noted above This note was created using [employer] and may have omissions and/or errors due to 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 Justifications for Admission Other Justification VISHAL MAGANA MD Nov 19, 2020 11:06
[2020-11-19 15:00] VITALS: BP 129/60
[2020-11-19] MEDS: REMDESIVIR 100mg in NORMAL SALINE 250ML X 4 DAYS IV SCH (17:52)
[2020-11-19 19:00] VITALS: BP 157/76
[2020-11-19 23:00] VITALS: BP 140/77
[2020-11-20 03:00] VITALS: BP 153/81
[2020-11-20 07:00] VITALS: BP 148/86
--- NOTE | 2020-11-20 07:32 | PDOC ---
PULMONARY PROGRESS NOTES DATE: 11/20/20 TIME: 07:32 Subjective Patient wants to know when he could go home Denies any shortness of breath on 02 15 lpm Vitals Vital Signs Date Time Temp Pulse Resp B/P (MAP) Pulse Ox O2 Delivery O2 Flow Rate FiO2 11/20/20 03:00 97.3 82 18 153/81 (105) 96 Nasal Cannula 12.0 97.3 Comments Visual exam done due to COVID-19. no distress nc at rrr no accessory muscle use no skin rash no leg edema General: Alert Labs Laboratory Tests Test 11/18/20 08:20 11/18/20 12:00 11/18/20 17:27 11/18/20 20:42 Glucose (Fingerstick) 91 mg/dL (70-99) 96 mg/dL (70-99) 125 mg/dL (70-99) 110 mg/dL (70-99) Test 11/19/20 05:45 11/19/20 08:24 White Blood Count 10.6 x10^3/uL (4.0-11.0) Red Blood Count 4.36 x10^6/uL (4.30-5.70) Hemoglobin 13.2 g/dL (13.0-17.5) Hematocrit 38.9 % (39.0-53.0) Mean Corpuscular Volume 89 fL (79-100) Mean Corpuscular Hemoglobin 30 pg (25-35) Mean Corpuscular Hemoglobin Concent 34 g/dL (31-37) Red Cell Distribution Width 13.9 % (11.5-14.5) Platelet Count 317 x10^3/uL (140-400) Neutrophils (%) (Auto) 78 % (31-73) Lymphocytes (%) (Auto) 14 % (24-48) Monocytes (%) (Auto) 8 % (0-9) Eosinophils (%) (Auto) 0 % (0-3) Basophils (%) (Auto) 0 % (0-3) Neutrophils # (Auto) 8.2 x10^3/uL (1.8-7.7) Lymphocytes # (Auto) 1.4 x10^3/uL (1.0-4.8) Monocytes # (Auto) 0.8 x10^3/uL (0.0-1.1) Eosinophils # (Auto) 0.0 x10^3/uL (0.0-0.7) Basophils # (Auto) 0.0 x10^3/uL (0.0-0.2) Sodium Level 141 mmol/L (136-145) Potassium Level 3.5 mmol/L (3.5-5.1) Chloride Level 108 mmol/L (98-107) Carbon Dioxide Level 24 mmol/L (21-32) Anion Gap 9 (6-14) Blood Urea Nitrogen 17 mg/dL (8-26) Creatinine 0.9 mg/dL (0.7-1.3) Estimated GFR (Cockcroft-Gault) 87.6 BUN/Creatinine Ratio 19 (6-20) Glucose Level 89 mg/dL (70-99) Calcium Level 8.1 mg/dL (8.5-10.1) Total Bilirubin 0.5 mg/dL (0.2-1.0) Direct Bilirubin 0.2 mg/dL (0.0-0.2) Aspartate Amino Transf (AST/SGOT) 61 U/L (15-37) Alanine Aminotransferase (ALT/SGPT) 220 U/L (16-63) Alkaline Phosphatase 166 U/L (46-116) Total Protein 6.0 g/dL (6.4-8.2) Albumin 2.2 g/dL (3.4-5.0) Albumin/Globulin Ratio 0.6 (1.0-1.7) Glucose (Fingerstick) 88 mg/dL (70-99) Laboratory Tests Test 11/19/20 08:24 Glucose (Fingerstick) 88 mg/dL (70-99) Medications Active Scripts Medications Dose Route/Sig Max Daily Dose Days Date Category Benzonatate 200 Mg Capsule 1 Cap PO PRN TID PRN 7 11/15/20 Reported Ventolin Hfa Inhaler (Albuterol Sulfate) 18 Gm Hfa.aer.ad 2 Puff INH Q4HRS PRN 11/15/20 Reported Impression . 1. Acute hypoxic respiratory failure secondary to COVID-19 pneumonia and acute lung injury. 2. Abnormal chest x-ray related to COVID-19 pneumonia. 3. The patient is unvaccinated for COVID-19. 4. Abnormal liver function test. Would not be a candidate for baricitinib. 5. Moderate protein calorie malnutrition. Plan . Updated 11/20 Continue oxygen supplementation Dexamethasone Antibiotics Remdesivir Up to chair 1. titrate fio2 to keep sat 90%. start IS 2. We will closely watch for need for increased oxygen requirements. 3. Continue dexamethasone. 4. Remdesivir for 5-day protocol. 5. IV antibiotics, doxycycline and Rocephin. 6. Lovenox for DVT prophylaxis. 7. As discussed above, the patient is not a candidate for baricitinib. 8. Discussed with MALIK GREEN MD Nov 20, 2020 07:32
[2020-11-20 08:58] LABS: BASO # 0.1 x10^3/uL (0.0-0.2); BASO % 1 % (0-3); EOS # 0.2 x10^3/uL (0.0-0.7); EOS % 1 % (0-3); HEMATOCRIT 43.5 % (39.0-53.0); HEMOGLOBIN 14.8 g/dL (13.0-17.5); LYMPH # 2.3 x10^3/uL (1.0-4.8); LYMPH % 15 % (24-48); MEAN CORPUSCULAR HEMOGLOBIN 31 pg (25-35); MEAN CORPUSCULAR HGB CONC 34 g/dL (31-37); MEAN CORPUSCULAR VOLUME 90 fL (79-100); MONO # 1.1 x10^3/uL (0.0-1.1); MONO % 7 % (0-9); NEUT # 11.9 x10^3/uL (1.8-7.7); NEUT % 76 % (31-73); PLATELET COUNT 325 x10^3/uL (140-400); RED BLOOD COUNT 4.83 x10^6/uL (4.30-5.70); RED CELL DISTRIBUTION WIDTH 13.6 % (11.5-14.5); WHITE BLOOD COUNT 15.6 x10^3/uL (4.0-11.0)
[2020-11-20] MEDS: LACTOBACILLUS RHAMNOSUS GG 1 CAPSULE. PO SCH ×2 (09:04→20:53)
[2020-11-20] MEDS: ZINC SULFATE 220 MG CAPSULE. PO SCH (09:04)
[2020-11-20] MEDS: ASCORBIC ACID 500 MG TABLET PO SCH ×2 (09:04→20:53)
[2020-11-20] MEDS: DOXYCYCLINE HYCLATE 100 MG TABLET PO SCH (09:04)
[2020-11-20] MEDS: DEXAMETHASONE SOD PHOS 4 MG/ML VIAL IVP SCH (09:04)
[2020-11-20] MEDS: ENOXAPARIN 40 MG/0.4 ML SYRINGE. SQ SCH ×2 (09:05→20:53)
[2020-11-20 09:21] LABS: ALBUMIN 2.4 g/dL (3.4-5.0); ALBUMIN/GLOBULIN RATIO 0.6 (1.0-1.7); CALCIUM 8.3 mg/dL (8.5-10.1); CREATININE 0.9 mg/dL (0.7-1.3); GFR 87.6; TOTAL BILIRUBIN 0.7 mg/dL (0.2-1.0); TOTAL PROTEIN 6.2 g/dL (6.4-8.2)
[2020-11-20 10:30] LABS: % BANDS 2 % (0-9); % LYMPHS 18 % (24-48); % MONOS 4 % (0-10); % SEGS 76 % (35-66); PLT ESTIMATE ADEQUATE (ADEQUATE)
[2020-11-20 11:00] VITALS: BP 144/80
--- NOTE | 2020-11-20 11:19 | NUR ---
SW following. Discussed with RN, pt from home with , 15L oxygen (does not wear oxygen at home). COVID-19 positive. Pt not ready for discharge. SW will continue to follow.
[2020-11-20] MEDS: cefTRIAXone IV Push 1 GM VIAL. IVP SCH (11:52)
--- NOTE | 2020-11-20 13:18 | PDOC ---
[facility] PROGRESS NOTE Date of Service DOS: DATE: 11/20/20 TIME: 13:15 Chief Complaint Chief Complaint Acute respiratory failure with hypoxia COVID-19 pneumonia Morbid obesity Severe malnutrition Plan: After discussion with patient, will initiate remdesivir for 5-day course Decadron 6 mg daily to complete 10-day treatment with slow taper Empiric antibiotics Monitor daily LFTs Requires more oxygen will consult pulmonology for further recommendations regarding baricitinib Supportive care, vitamin C, zinc. FEN - Cardiac diet PPX - Lovenox FULL CODE Dispo - inpatient for above Patient names his as surrogate decision-maker History of Present Illness History of Present Illness Mr Holt is a 54-year-old male with past medical history morbid obesity, presents to the ED with complaints of shortness of breath. States he was diagnosed with COVID-19. 9 days ago that he contracted from his at home. Initially symptoms began with cough, but since that time has been progressing to include shortness of breath, body aches, headaches. Upon arrival in the ED he was saturating 85% on room air. This improved with 5 L nasal cannula. Labs on admission showed AST 93, ALT 78, alk phos 187, albumin 2.4, sodium 132. Chest x- ray showed multifocal infiltrates with suspected partial right lower lobe consolidation. He has not been vaccinated against COVID-19 for "sabianist reasons". He received Levaquin and Decadron in the ED. Will admit patient for further medical management. 11/16: Afebrile overnight. O2 saturations 92% now on 8 L nasal cannula. LFTs increased CRP 159. Notes he thinks he could taste the jelly on his toast today and his appetite is improved. Still complaining of diarrhea and abdominal pain thinks his cough is stable. Afebrile overnight. LFTs not the same CRP still elevated. O2 saturations 93% now on 15 L facemask O2. Still has an appetite is able to move around. Has significant O2 desaturations when he tried to get up to urinate today. Still has little bit of diarrhea abdominal pain is a little better. Discussed with his over the phone. Given his LFTs not a candidate for baricitinib 11/20/2020 No acute events overnight. Patient seen and examined bedside. Patient saturating 96% on 12 L nasal cannula. Liver enzymes stable. Patient does not wear any oxygen at home. Patient's chart, labs, images were reviewed and discussed with RN Vitals/I&O Vitals/I&O: Vital Signs Date Time Temp Pulse Resp B/P (MAP) Pulse Ox O2 Delivery O2 Flow Rate FiO2 11/20/20 11:00 97.4 93 18 144/80 (101) 94 Nasal Cannula 12.0 97.4 I & O 11/19/20 11/19/20 11/20/20 15:00 23:00 07:00 Intake Total 200 ml 600 ml Output Total 250 ml 300 ml Balance -50 ml 300 ml Physical Exam General: Alert, Oriented X3, Cooperative, moderate distress Heart: Regular rate, Normal S1, Normal S2 Abdomen: Normal bowel sounds, Soft Extremities: No clubbing, No cyanosis Skin: No rashes, No breakdown Labs Labs: Laboratory Tests Test 11/20/20 08:35 White Blood Count 15.6 x10^3/uL (4.0-11.0) Red Blood Count 4.83 x10^6/uL (4.30-5.70) Hemoglobin 14.8 g/dL (13.0-17.5) Hematocrit 43.5 % (39.0-53.0) Mean Corpuscular Volume 90 fL (79-100) Mean Corpuscular Hemoglobin 31 pg (25-35) Mean Corpuscular Hemoglobin Concent 34 g/dL (31-37) Red Cell Distribution Width 13.6 % (11.5-14.5) Platelet Count 325 x10^3/uL (140-400) Neutrophils (%) (Auto) 76 % (31-73) Lymphocytes (%) (Auto) 15 % (24-48) Monocytes (%) (Auto) 7 % (0-9) Eosinophils (%) (Auto) 1 % (0-3) Basophils (%) (Auto) 1 % (0-3) Neutrophils # (Auto) 11.9 x10^3/uL (1.8-7.7) Lymphocytes # (Auto) 2.3 x10^3/uL (1.0-4.8) Monocytes # (Auto) 1.1 x10^3/uL (0.0-1.1) Eosinophils # (Auto) 0.2 x10^3/uL (0.0-0.7) Basophils # (Auto) 0.1 x10^3/uL (0.0-0.2) Segmented Neutrophils % 76 % (35-66) Band Neutrophils % 2 % (0-9) Lymphocytes % 18 % (24-48) Monocytes % 4 % (0-10) Platelet Estimate Adequate (ADEQUATE) Large Platelets Few Giant Platelets Occ Sodium Level 139 mmol/L (136-145) Potassium Level 4.0 mmol/L (3.5-5.1) Chloride Level 105 mmol/L (98-107) Carbon Dioxide Level 22 mmol/L (21-32) Anion Gap 12 (6-14) Blood Urea Nitrogen 18 mg/dL (8-26) Creatinine 0.9 mg/dL (0.7-1.3) Estimated GFR (Cockcroft-Gault) 87.6 BUN/Creatinine Ratio 20 (6-20) Glucose Level 88 mg/dL (70-99) Calcium Level 8.3 mg/dL (8.5-10.1) Total Bilirubin 0.7 mg/dL (0.2-1.0) Aspartate Amino Transf (AST/SGOT) 51 U/L (15-37) Alanine Aminotransferase (ALT/SGPT) 205 U/L (16-63) Alkaline Phosphatase 186 U/L (46-116) Total Protein 6.2 g/dL (6.4-8.2) Albumin 2.4 g/dL (3.4-5.0) Albumin/Globulin Ratio 0.6 (1.0-1.7) Comment Review of Relevant I have reviewed the following items [place] (where applicable) has been applied. Justifications for Admission Other Justification MARYLOU LUNDBERG MD Nov 20, 2020 13:18
[2020-11-20 15:00] VITALS: BP 127/72
[2020-11-20 19:00] VITALS: BP 142/83
[2020-11-20 23:00] VITALS: BP 135/82
[2020-11-21 03:00] VITALS: BP 119/69
[2020-11-21 07:50] VITALS: BP 125/69
--- NOTE | 2020-11-21 08:59 | PDOC ---
PULMONARY PROGRESS NOTES DATE: 11/21/20 TIME: 08:59 Subjective Patient sitting up in a chair currently on 12 L Eating lunch No increasing respiratory distress Vitals Vital Signs Date Time Temp Pulse Resp B/P (MAP) Pulse Ox O2 Delivery O2 Flow Rate FiO2 11/21/20 07:50 96.9 81 14 125/69 (87) 100 Nasal Cannula 12.0 96.9 Comments Visual exam done due to COVID-19. no distress nc at rrr no accessory muscle use no skin rash no leg edema General: Alert Labs Laboratory Tests Test 11/20/20 08:35 White Blood Count 15.6 x10^3/uL (4.0-11.0) Red Blood Count 4.83 x10^6/uL (4.30-5.70) Hemoglobin 14.8 g/dL (13.0-17.5) Hematocrit 43.5 % (39.0-53.0) Mean Corpuscular Volume 90 fL (79-100) Mean Corpuscular Hemoglobin 31 pg (25-35) Mean Corpuscular Hemoglobin Concent 34 g/dL (31-37) Red Cell Distribution Width 13.6 % (11.5-14.5) Platelet Count 325 x10^3/uL (140-400) Neutrophils (%) (Auto) 76 % (31-73) Lymphocytes (%) (Auto) 15 % (24-48) Monocytes (%) (Auto) 7 % (0-9) Eosinophils (%) (Auto) 1 % (0-3) Basophils (%) (Auto) 1 % (0-3) Neutrophils # (Auto) 11.9 x10^3/uL (1.8-7.7) Lymphocytes # (Auto) 2.3 x10^3/uL (1.0-4.8) Monocytes # (Auto) 1.1 x10^3/uL (0.0-1.1) Eosinophils # (Auto) 0.2 x10^3/uL (0.0-0.7) Basophils # (Auto) 0.1 x10^3/uL (0.0-0.2) Segmented Neutrophils % 76 % (35-66) Band Neutrophils % 2 % (0-9) Lymphocytes % 18 % (24-48) Monocytes % 4 % (0-10) Platelet Estimate Adequate (ADEQUATE) Large Platelets Few Giant Platelets Occ Sodium Level 139 mmol/L (136-145) Potassium Level 4.0 mmol/L (3.5-5.1) Chloride Level 105 mmol/L (98-107) Carbon Dioxide Level 22 mmol/L (21-32) Anion Gap 12 (6-14) Blood Urea Nitrogen 18 mg/dL (8-26) Creatinine 0.9 mg/dL (0.7-1.3) Estimated GFR (Cockcroft-Gault) 87.6 BUN/Creatinine Ratio 20 (6-20) Glucose Level 88 mg/dL (70-99) Calcium Level 8.3 mg/dL (8.5-10.1) Total Bilirubin 0.7 mg/dL (0.2-1.0) Aspartate Amino Transf (AST/SGOT) 51 U/L (15-37) Alanine Aminotransferase (ALT/SGPT) 205 U/L (16-63) Alkaline Phosphatase 186 U/L (46-116) Total Protein 6.2 g/dL (6.4-8.2) Albumin 2.4 g/dL (3.4-5.0) Albumin/Globulin Ratio 0.6 (1.0-1.7) Medications Active Scripts Medications Dose Route/Sig Max Daily Dose Days Date Category Benzonatate 200 Mg Capsule 1 Cap PO PRN TID PRN 7 11/15/20 Reported Ventolin Hfa Inhaler (Albuterol Sulfate) 18 Gm Hfa.aer.ad 2 Puff INH Q4HRS PRN 11/15/20 Reported Impression . 1. Acute hypoxic respiratory failure secondary to COVID-19 pneumonia and acute lung injury. 2. Abnormal chest x-ray related to COVID-19 pneumonia. 3. The patient is unvaccinated for COVID-19. 4. Abnormal liver function test. Would not be a candidate for baricitinib. 5. Moderate protein calorie malnutrition. Plan . Updated 11/21 I spoke with on the phone Updated and patient Continue current support May be able to discharge home once his oxygen requirements decreased Continue antibiotics and steroids Remdesivir. updated 11/20 Continue oxygen supplementation Dexamethasone Antibiotics Remdesivir Up to chair 1. titrate fio2 to keep sat 90%. start IS 2. We will closely watch for need for increased oxygen requirements. 3. Continue dexamethasone. 4. Remdesivir for 5-day protocol. 5. IV antibiotics, doxycycline and Rocephin. 6. Lovenox for DVT prophylaxis. 7. As discussed above, the patient is not a candidate for baricitinib. 8. Discussed with MALIK GREEN MD Nov 21, 2020 08:59
[2020-11-21] MEDS: LACTOBACILLUS RHAMNOSUS GG 1 CAPSULE. PO SCH ×2 (09:23→21:28)
[2020-11-21] MEDS: ZINC SULFATE 220 MG CAPSULE. PO SCH (09:23)
[2020-11-21] MEDS: ASCORBIC ACID 500 MG TABLET PO SCH ×2 (09:23→21:28)
[2020-11-21] MEDS: cefTRIAXone IV Push 1 GM VIAL. IVP SCH (09:24)
[2020-11-21] MEDS: DEXAMETHASONE SOD PHOS 4 MG/ML VIAL IVP SCH (09:24)
[2020-11-21] MEDS: ENOXAPARIN 40 MG/0.4 ML SYRINGE. SQ SCH ×3 (09:25→21:28)
[2020-11-21 11:32] VITALS: BP 123/70
--- NOTE | 2020-11-21 13:04 | PDOC ---
[facility] PROGRESS NOTE Date of Service DOS: DATE: 11/21/20 TIME: 13:03 Chief Complaint Chief Complaint Acute respiratory failure with hypoxia COVID-19 pneumonia Morbid obesity Severe malnutrition Plan: After discussion with patient, will initiate remdesivir for 5-day course Decadron 6 mg daily to complete 10-day treatment with slow taper Empiric antibiotics Monitor daily LFTs Requires more oxygen will consult pulmonology for further recommendations regarding baricitinib Supportive care, vitamin C, zinc. FEN - Cardiac diet PPX - Lovenox FULL CODE Dispo - inpatient for above Patient names his as surrogate decision-maker History of Present Illness History of Present Illness Mr Holt is a 54-year-old male with past medical history morbid obesity, presents to the ED with complaints of shortness of breath. States he was diagnosed with COVID-19. 9 days ago that he contracted from his at home. Initially symptoms began with cough, but since that time has been progressing to include shortness of breath, body aches, headaches. Upon arrival in the ED he was saturating 85% on room air. This improved with 5 L nasal cannula. Labs on admission showed AST 93, ALT 78, alk phos 187, albumin 2.4, sodium 132. Chest x- ray showed multifocal infiltrates with suspected partial right lower lobe consolidation. He has not been vaccinated against COVID-19 for "taoism reasons". He received Levaquin and Decadron in the ED. Will admit patient for further medical management. 11/16: Afebrile overnight. O2 saturations 92% now on 8 L nasal cannula. LFTs increased CRP 159. Notes he thinks he could taste the jelly on his toast today and his appetite is improved. Still complaining of diarrhea and abdominal pain thinks his cough is stable. Afebrile overnight. LFTs not the same CRP still elevated. O2 saturations 93% now on 15 L facemask O2. Still has an appetite is able to move around. Has significant O2 desaturations when he tried to get up to urinate today. Still has little bit of diarrhea abdominal pain is a little better. Discussed with his over the phone. Given his LFTs not a candidate for baricitinib 11/20/2020 No acute events overnight. Patient seen and examined bedside. Patient saturating 96% on 12 L nasal cannula. Liver enzymes stable. Patient does not wear any oxygen at home. Patient's chart, labs, images were reviewed and discussed with RN 11/21/2020 No acute events overnight. Patient saturating 95% on 12 L nasal cannula. Patient seen and examined sitting on the bedside. Patient reports dyspnea upon exertion but is past motivation for increase in activity. Encourage patient to lie prone position while in bed watching TV and also while sitting in bed or the recliner to do incentive spirometry during commercial breaks as much as possible. Patient's chart, labs, images were reviewed and discussed with RN Vitals/I&O Vitals/I&O: Vital Signs Date Time Temp Pulse Resp B/P (MAP) Pulse Ox O2 Delivery O2 Flow Rate FiO2 11/21/20 11:32 95.5 92 18 123/70 (87) 93 Nasal Cannula 12.0 95.5 I & O 11/20/20 11/20/20 11/21/20 15:00 23:00 07:00 Intake Total 300 ml 350 ml 400 ml Output Total 700 ml 200 ml 225 ml Balance -400 ml 150 ml 175 ml Physical Exam General: Alert, Oriented X3, Cooperative, moderate distress Heart: Regular rate, Normal S1, Normal S2 Abdomen: Normal bowel sounds, Soft Extremities: No clubbing, No cyanosis Skin: No rashes, No breakdown Comment Review of Relevant I have reviewed the following items [place] (where applicable) has been applied. Justifications for Admission Other Justification MARYLOU LUNDBERG MD Nov 21, 2020 13:04
[2020-11-21 15:15] VITALS: BP 114/64
[2020-11-21 19:00] VITALS: BP 132/71
[2020-11-21 23:04] VITALS: BP 148/83
[2020-11-22] MEDS: guaiFENesin DM 200MG/20MG 10 ML SYRUP PO PRN ×2 (03:19→22:24)
[2020-11-22 03:31] VITALS: BP 122/80
[2020-11-22 07:10] VITALS: BP 141/71
[2020-11-22] MEDS: ZINC SULFATE 220 MG CAPSULE. PO SCH (08:30)
[2020-11-22] MEDS: ASCORBIC ACID 500 MG TABLET PO SCH ×2 (08:30→22:17)
[2020-11-22] MEDS: ENOXAPARIN 40 MG/0.4 ML SYRINGE. SQ SCH ×2 (08:30→22:18)
[2020-11-22] MEDS: LACTOBACILLUS RHAMNOSUS GG 1 CAPSULE. PO SCH ×2 (08:30→22:17)
[2020-11-22] MEDS: DEXAMETHASONE SOD PHOS 4 MG/ML VIAL IVP SCH (08:31)
--- NOTE | 2020-11-22 09:19 | PDOC ---
PULMONARY PROGRESS NOTES DATE: 11/22/20 TIME: 09:19 Subjective Patient feels better today, appetite has improved Vitals Vital Signs Date Time Temp Pulse Resp B/P (MAP) Pulse Ox O2 Delivery O2 Flow Rate FiO2 11/22/20 07:10 96.8 76 20 141/71 (94) 97 Nasal Cannula 12.0 96.8 Comments Visual exam done due to COVID-19. no distress nc at rrr no accessory muscle use no skin rash no leg edema General: Alert, No acute distress Medications Active Scripts Medications Dose Route/Sig Max Daily Dose Days Date Category Benzonatate 200 Mg Capsule 1 Cap PO PRN TID PRN 7 11/15/20 Reported Ventolin Hfa Inhaler (Albuterol Sulfate) 18 Gm Hfa.aer.ad 2 Puff INH Q4HRS PRN 11/15/20 Reported Impression . 1. Acute hypoxic respiratory failure secondary to COVID-19 pneumonia and acute lung injury. 2. Abnormal chest x-ray related to COVID-19 pneumonia. 3. The patient is unvaccinated for COVID-19. 4. Abnormal liver function test. Would not be a candidate for baricitinib. 5. Moderate protein calorie malnutrition. Plan . Updated 11/22 Patient feels better appetite is improved Continues to require 12 L Continue steroids Continue antibiotics Remdesivir Home when his oxygen needs decreased lower than 10 L Updated 11/21 I spoke with on the phone Updated and patient Continue current support May be able to discharge home once his oxygen requirements decreased Continue antibiotics and steroids Remdesivir. updated 11/20 Continue oxygen supplementation Dexamethasone Antibiotics Remdesivir Up to chair MALIK MONROY MD Nov 22, 2020 09:19
--- NOTE | 2020-11-22 10:26 | NUR ---
SW following. Discussed with RN, pt now on 12L of oxygen. Still not ready for discharge. COVID-19 positive. SW will continue to follow.
[2020-11-22 11:10] VITALS: BP 126/63
--- NOTE | 2020-11-22 13:58 | PDOC ---
[facility] PROGRESS NOTE Date of Service DOS: DATE: 11/22/20 TIME: 13:56 Chief Complaint Chief Complaint Acute respiratory failure with hypoxia COVID-19 pneumonia Morbid obesity Severe malnutrition Plan: After discussion with patient, will initiate remdesivir for 5-day course Decadron 6 mg daily to complete 10-day treatment with slow taper Empiric antibiotics Monitor daily LFTs Requires more oxygen will consult pulmonology for further recommendations regarding baricitinib Supportive care, vitamin C, zinc. FEN - Cardiac diet PPX - Lovenox FULL CODE Dispo - inpatient for above Patient names his as surrogate decision-maker History of Present Illness History of Present Illness Mr Holt is a 54-year-old male with past medical history morbid obesity, presents to the ED with complaints of shortness of breath. States he was diagnosed with COVID-19. 9 days ago that he contracted from his at home. Initially symptoms began with cough, but since that time has been progressing to include shortness of breath, body aches, headaches. Upon arrival in the ED he was saturating 85% on room air. This improved with 5 L nasal cannula. Labs on admission showed AST 93, ALT 78, alk phos 187, albumin 2.4, sodium 132. Chest x- ray showed multifocal infiltrates with suspected partial right lower lobe consolidation. He has not been vaccinated against COVID-19 for "taoism reasons". He received Levaquin and Decadron in the ED. Will admit patient for further medical management. 11/16: Afebrile overnight. O2 saturations 92% now on 8 L nasal cannula. LFTs increased CRP 159. Notes he thinks he could taste the jelly on his toast today and his appetite is improved. Still complaining of diarrhea and abdominal pain thinks his cough is stable. Afebrile overnight. LFTs not the same CRP still elevated. O2 saturations 93% now on 15 L facemask O2. Still has an appetite is able to move around. Has significant O2 desaturations when he tried to get up to urinate today. Still has little bit of diarrhea abdominal pain is a little better. Discussed with his over the phone. Given his LFTs not a candidate for baricitinib 11/20/2020 No acute events overnight. Patient seen and examined bedside. Patient saturating 96% on 12 L nasal cannula. Liver enzymes stable. Patient does not wear any oxygen at home. Patient's chart, labs, images were reviewed and discussed with RN 11/21/2020 No acute events overnight. Patient saturating 95% on 12 L nasal cannula. Patient seen and examined sitting on the bedside. Patient reports dyspnea upon exertion but is past motivation for increase in activity. Encourage patient to lie prone position while in bed watching TV and also while sitting in bed or the recliner to do incentive spirometry during commercial breaks as much as possible. Patient's chart, labs, images were reviewed and discussed with RN 11/22/2020 No acute events overnight. Patient seen and examined bedside. Patient able to tolerate 12 L nasal cannula and saturating 97%. Patient able to try lying on his side in prone positioning for a while. No concerns nursing at this time. Patient's chart, labs, images were reviewed and discussed with RN Vitals/I&O Vitals/I&O: Vital Signs Date Time Temp Pulse Resp B/P (MAP) Pulse Ox O2 Delivery O2 Flow Rate FiO2 11/22/20 11:10 95.7 85 18 126/63 (84) 96 Nasal Cannula 12.0 95.7 I & O 11/21/20 11/21/20 11/22/20 15:00 23:00 07:00 Intake Total 240 ml 240 ml Output Total 400 ml 200 ml 400 ml Balance -160 ml 40 ml -400 ml Physical Exam General: Alert, Oriented X3, Cooperative, moderate distress Heart: Regular rate, Normal S1, Normal S2 Abdomen: Normal bowel sounds, Soft Extremities: No clubbing, No cyanosis Skin: No rashes, No breakdown Comment Review of Relevant I have reviewed the following items [place] (where applicable) has been applied. Justifications for Admission Other Justification MARYLOU LUNDBERG MD Nov 22, 2020 13:58
[2020-11-22 14:55] VITALS: BP 133/73
[2020-11-22 19:00] VITALS: BP 141/71
[2020-11-22 22:40] VITALS: BP 120/72
[2020-11-23 02:54] VITALS: BP 121/76
[2020-11-23 07:20] VITALS: BP 127/67
--- NOTE | 2020-11-23 08:26 | PDOC ---
PULMONARY PROGRESS NOTES DATE: 11/23/20 TIME: 08:26 Subjective Patient feels better, now more short of air Vitals Vital Signs Date Time Temp Pulse Resp B/P (MAP) Pulse Ox O2 Delivery O2 Flow Rate FiO2 11/23/20 07:56 Nasal Cannula 9.0 11/23/20 02:54 98.3 78 18 121/76 (91) 98 98.3 Comments Visual exam done due to COVID-19. no distress nc at rrr no accessory muscle use no skin rash no leg edema General: Alert, No acute distress Medications Active Scripts Medications Dose Route/Sig Max Daily Dose Days Date Category Benzonatate 200 Mg Capsule 1 Cap PO PRN TID PRN 7 11/15/20 Reported Ventolin Hfa Inhaler (Albuterol Sulfate) 18 Gm Hfa.aer.ad 2 Puff INH Q4HRS PRN 11/15/20 Reported Impression . 1. Acute hypoxic respiratory failure secondary to COVID-19 pneumonia and acute lung injury. 2. Abnormal chest x-ray related to COVID-19 pneumonia. 3. The patient is unvaccinated for COVID-19. 4. Abnormal liver function test. Would not be a candidate for baricitinib. 5. Moderate protein calorie malnutrition. Plan . Updated 11/[address] Cox Discharge home after a 6-minute walk Follow-up with me in 4 to 6 weeks updated 11/22 Patient feels better appetite is improved Continues to require 12 L Continue steroids Continue antibiotics Remdesivir Home when his oxygen needs decreased lower than 10 L MALIK MONROY MD Nov 23, 2020 08:26
[2020-11-23] MEDS: ZINC SULFATE 220 MG CAPSULE. PO SCH (10:17)
[2020-11-23] MEDS: DEXAMETHASONE SOD PHOS 4 MG/ML VIAL IVP SCH (10:17)
[2020-11-23] MEDS: LACTOBACILLUS RHAMNOSUS GG 1 CAPSULE. PO SCH (10:17)
[2020-11-23] MEDS: ASCORBIC ACID 500 MG TABLET PO SCH (10:17)
[2020-11-23] MEDS: ENOXAPARIN 40 MG/0.4 ML SYRINGE. SQ SCH (10:18)
[2020-11-23 11:15] VITALS: BP 136/70
--- NOTE | 2020-11-23 11:43 | PDOC ---
[facility] PROGRESS NOTE Date of Service DOS: DATE: 11/23/20 TIME: 11:41 Chief Complaint Chief Complaint Acute respiratory failure with hypoxia COVID-19 pneumonia Morbid obesity Severe malnutrition Plan: After discussion with patient, will initiate remdesivir for 5-day course Decadron 6 mg daily to complete 10-day treatment with slow taper Empiric antibiotics Monitor daily LFTs Requires more oxygen will consult pulmonology for further recommendations regarding baricitinib Supportive care, vitamin C, zinc. FEN - Cardiac diet PPX - Lovenox FULL CODE Dispo - inpatient for above Patient names his as surrogate decision-maker History of Present Illness History of Present Illness Mr Holt is a 54-year-old male with past medical history morbid obesity, presents to the ED with complaints of shortness of breath. States he was diagnosed with COVID-19. 9 days ago that he contracted from his at home. Initially symptoms began with cough, but since that time has been progressing to include shortness of breath, body aches, headaches. Upon arrival in the ED he was saturating 85% on room air. This improved with 5 L nasal cannula. Labs on admission showed AST 93, ALT 78, alk phos 187, albumin 2.4, sodium 132. Chest x- ray showed multifocal infiltrates with suspected partial right lower lobe consolidation. He has not been vaccinated against COVID-19 for "mosque reasons". He received Levaquin and Decadron in the ED. Will admit patient for further medical management. 11/16: Afebrile overnight. O2 saturations 92% now on 8 L nasal cannula. LFTs increased CRP 159. Notes he thinks he could taste the jelly on his toast today and his appetite is improved. Still complaining of diarrhea and abdominal pain thinks his cough is stable. Afebrile overnight. LFTs not the same CRP still elevated. O2 saturations 93% now on 15 L facemask O2. Still has an appetite is able to move around. Has significant O2 desaturations when he tried to get up to urinate today. Still has little bit of diarrhea abdominal pain is a little better. Discussed with his over the phone. Given his LFTs not a candidate for baricitinib 11/20/2020 No acute events overnight. Patient seen and examined bedside. Patient saturating 96% on 12 L nasal cannula. Liver enzymes stable. Patient does not wear any oxygen at home. Patient's chart, labs, images were reviewed and discussed with RN 11/21/2020 No acute events overnight. Patient saturating 95% on 12 L nasal cannula. Patient seen and examined sitting on the bedside. Patient reports dyspnea upon exertion but is past motivation for increase in activity. Encourage patient to lie prone position while in bed watching TV and also while sitting in bed or the recliner to do incentive spirometry during commercial breaks as much as possible. Patient's chart, labs, images were reviewed and discussed with RN 11/22/2020 No acute events overnight. Patient seen and examined bedside. Patient able to tolerate 12 L nasal cannula and saturating 97%. Patient able to try lying on his side in prone positioning for a while. No concerns nursing at this time. Patient's chart, labs, images were reviewed and discussed with RN 11/23/2020 No acute events overnight. Patient saturating 98% on 9 L nasal. No dyspneic episodes. No concerns nursing. Patient's chart, labs, images were reviewed and discussed with RN Vitals/I&O Vitals/I&O: Vital Signs Date Time Temp Pulse Resp B/P (MAP) Pulse Ox O2 Delivery O2 Flow Rate FiO2 11/23/20 07:56 Nasal Cannula 9.0 11/23/20 07:20 97.0 81 20 127/67 (87) 98 97.0 I & O 11/22/20 11/22/20 11/23/20 15:00 23:00 07:00 Intake Total 240 ml 920 ml Output Total 800 ml 500 ml 1600 ml Balance -560 ml 420 ml -1600 ml Physical Exam General: Alert, Oriented X3, Cooperative, moderate distress Heart: Regular rate, Normal S1, Normal S2 Abdomen: Normal bowel sounds, Soft Extremities: No clubbing, No cyanosis Skin: No rashes, No breakdown Comment Review of Relevant I have reviewed the following items [place] (where applicable) has been applied. Justifications for Admission Other Justification MARYLOU LUNDBERG MD Nov 23, 2020 11:43
[2020-11-23] MEDS ORDERED: PRED20TA PO (14:49)
--- NOTE | 2020-11-23 14:51 | DISCH ---
DISCHARGE INSTRUCTIONS Condition on Discharge Condition on Discharge: Stable Activity After Discharge Activity Instructions for Disc: Activity as tolerated Lifting Instructions after Dis: Do not lift >10 pounds Exercise Instruction after Dis: Walk 15 min, 3 x per day Driving Instructions after Dis: Do not drive today Weight Bearing Status after Di: Full weight bearing Diet after Discharge Diet after Discharge: Cardiac Checks after Discharge DC Comment: Use pulse oximeter to keep O2 greater than 90% Follow-Up Follow up with: PCP within 2 weeks of discharge Follow Up With: Pulmonology as scheduled or as needed MARYLOU LUNDBERG MD Nov 23, 2020 14:51
[2020-11-23 15:08] VITALS: BP 128/70
--- NOTE | 2020-11-23 16:20 | NUR ---
SW following. Discussed with RN, pt completed 6 minute walk, requiring o2 at 2L with exertion. SW faxed script and clinicals to [facility], provided tank to RN to give to pt when approved by [facility]. Provided [facility] with RN phone number to give approval. SW will continue to follow.
--- NOTE | 2020-11-23 18:30 | NUR ---
Pt left unit at 1830 by wheelchair via private vehicle with . Pt's IV removed without complications, VSS. Discharge paperwork, including medications, follow-up, and education discussed at length with pt and . COVID instructions given. All additional questions addressed.
== END 2020-11-23 18:32 | disposition home or self-care (01) | DRG 871 ==
LOC: ER 13:40 → 5 NORTH 16:06
PROVIDERS: ADMIT Family Medicine; ATTEND Family Medicine
PROC: XW033E5 Introduction of Remdesivir Anti-infective into Peripheral Vein, Percutaneous Approach, New Technology Group 5 (ICD-10-PCS; principal; 2020-11-16)
DX: A41.89 Other specified sepsis (principal); U07.1 COVID-19; E43 Unspecified severe protein-calorie malnutrition; J96.01 Acute respiratory failure with hypoxia; J12.82 Pneumonia due to coronavirus disease 2019; Z68.41 Body mass index [BMI] 40.0-44.9, adult; E66.01 Morbid (severe) obesity due to excess calories; G47.33 Obstructive sleep apnea (adult) (pediatric); I51.7 Cardiomegaly; Z82.49 Family history of ischemic heart disease and other diseases of the circulatory system; Z88.0 Allergy status to penicillin; Z88.2 Allergy status to sulfonamides; Z28.3 Underimmunization status
CPT/HCPCS: 36415; 71045; 80048; 80053; 80076; 82248; 82962; 83036; 83605; 83735; 83880; 84145; 84443; 84484; 85007; 85025; 86140; 87040; 93005; 94618; 96365; 96375; G0238; J0696; J1100; J1650; J1956; J7030; J7050; 99285-25; G0378